=== PATIENT | male | born 1935 | race Caucasian/White ===

== ENCOUNTER 2016-07-22 16:28 | Inpatient (IN) | payer MEDICARE, BC ==
[2016-07-22] MEDS ORDERED: SODIUM CHLORIDE 0.9% 1,000 ML IV STA ×2 (17:14→19:03)
--- NOTE | 2016-07-22 17:53 | ED ---
General Adult HPI - General Chief complaint: Fall Stated complaint: Fall-Sent By Dr Diaz Seen by Provider: 07/22/16 17:14 Source: patient, family, RN notes reviewed, old records reviewed Mode of arrival: wheelchair Limitations: no limitations - History of Present Illness Initial comments: This is an 81-year-old male to the ER for evaluation. This patient presents for evaluation of weakness, increased falls. Patient has no specific medical history aside from high blood pressure and chronic lung disease. Patient takes no medications at home. Family states patient's been having increasing falls lately, patient subsequently complaints, and assurance of breath denies chest pain is about October.Patient's level of activity and weakness has been increased, his also been more tired than normal. Patient denies any nausea vomiting, no diarrhea, no fevers, no blood in his stool - Related Data Home Medications Medication Instructions Recorded Confirmed Chlorthalidone [Hygroten] 50 mg PO QAM 07/22/16 07/22/16 Rosuvastatin Calcium [Crestor] 10 mg PO QAM 07/22/16 07/22/16 Allergies Allergy/AdvReac Type Severity Reaction Status Date / Time No Known Allergies Allergy Verified 07/22/16 17:46 Review of Systems ROS Statement: Those systems with pertinent positive or pertinent negative responses have been documented in the HPI. ROS Other: All systems not noted in ROS Statement are negative. Past Medical History Past Medical History: Hypertension Additional Past Medical History / Comment(s): kidney stones History of Any Multi-Drug Resistant Organisms: None Reported Past Surgical History: Prostate Surgery Past Psychological History: No Psychological Hx Reported Smoking Status: Former smoker Past Alcohol Use History: Rare Past Drug Use History: None Reported General Exam Limitations: no limitations General appearance: alert, anxious, cachectic Head exam: Present: atraumatic, normocephalic, normal inspection Eye exam: Present: normal appearance, PERRL, EOMI. Absent: scleral icterus, conjunctival injection, periorbital swelling ENT exam: Present: mucous membranes dry Neck exam: Present: normal inspection. Absent: tenderness, meningismus, lymphadenopathy Respiratory exam: Present: normal lung sounds bilaterally, wheezes, decreased breath sounds, prolonged expiratory. Absent: respiratory distress, rales, rhonchi, stridor Cardiovascular Exam: Present: normal rhythm, tachycardia, normal heart sounds. Absent: systolic murmur, diastolic murmur, rubs, gallop, clicks GI/Abdominal exam: Present: soft, normal bowel sounds. Absent: distended, tenderness, guarding, rebound, rigid Extremities exam: Present: normal inspection, full ROM, normal capillary refill. Absent: tenderness, pedal edema, joint swelling, calf tenderness Back exam: Present: normal inspection Neurological exam: Present: alert, oriented X3, CN II-XII intact Psychiatric exam: Present: normal affect, normal mood Skin exam: Present: warm, dry, intact, normal color. 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 Patient will be admitted for appropriate treatment of all of the above, cardiopulmonary resuscitation and management. - Lab Data Result diagrams: 07/22/16 17:45 07/22/16 17:45 Lab Results 07/22/16 07/22/16 07/22/16 Range/Units 17:45 17:45 17:45 WBC 14.6 H (3.8-10.6) k/uL RBC 4.03 L (4.30-5.90) m/uL Hgb 12.6 L (13.0-17.5) gm/dL Hct 37.5 L (39.0-53.0) % MCV 93.0 (80.0-100.0) fL MCH 31.3 (25.0-35.0) pg MCHC 33.7 (31.0-37.0) g/dL RDW 14.0 (11.5-15.5) % Plt Count 266 (150-450) k/uL Neutrophils % 93 % Lymphocytes % 2 % Monocytes % 3 % Eosinophils % 0 % Basophils % 1 % Neutrophils # 13.6 H (1.3-7.7) k/uL Lymphocytes # 0.3 L (1.0-4.8) k/uL Monocytes # 0.5 (0-1.0) k/uL Eosinophils # 0.0 (0-0.7) k/uL Basophils # 0.1 (0-0.2) k/uL PT (9.0-12.0) sec INR (<1.1) APTT (22.0-30.0) sec Sodium 135 L (137-145) mmol/L Potassium 3.7 (3.5-5.1) mmol/L Chloride 88 L (98-107) mmol/L Carbon Dioxide 29 (22-30) mmol/L Anion Gap 18 mmol/L BUN 73 H (9-20) mg/dL Creatinine 2.30 H (0.66-1.25) mg/dL Est GFR (MDRD) Af Amer 33 (>60 ml/min/1.73 sqM) Est GFR (MDRD) Non-Af 27 (>60 ml/min/1.73 sqM) Glucose 141 H (74-99) mg/dL Calcium 9.1 (8.4-10.2) mg/dL Phosphorus 5.1 H (2.5-4.5) mg/dL Magnesium 2.5 H (1.6-2.3) mg/dL Total Bilirubin 1.1 (0.2-1.3) mg/dL AST 47 (17-59) U/L ALT 43 (21-72) U/L Alkaline Phosphatase 86 (38-126) U/L Total Creatine Kinase 252 H (55-170) U/L CK-MB (CK-2) 6.3 H* (0.0-2.4) ng/mL CK-MB (CK-2) Rel Index 2.5 Troponin I 0.507 H* (0.000-0.034) ng/mL Total Protein 7.0 (6.3-8.2) g/dL Albumin 3.8 (3.5-5.0) g/dL 07/22/16 Range/Units 17:45 WBC (3.8-10.6) k/uL RBC (4.30-5.90) m/uL Hgb (13.0-17.5) gm/dL Hct (39.0-53.0) % MCV (80.0-100.0) fL MCH (25.0-35.0) pg MCHC (31.0-37.0) g/dL RDW (11.5-15.5) % Plt Count (150-450) k/uL Neutrophils % % Lymphocytes % % Monocytes % % Eosinophils % % Basophils % % Neutrophils # (1.3-7.7) k/uL Lymphocytes # (1.0-4.8) k/uL Monocytes # (0-1.0) k/uL Eosinophils # (0-0.7) k/uL Basophils # (0-0.2) k/uL PT 11.3 (9.0-12.0) sec INR 1.1 (<1.1) APTT 23.2 (22.0-30.0) sec Sodium (137-145) mmol/L Potassium (3.5-5.1) mmol/L Chloride (98-107) mmol/L Carbon Dioxide (22-30) mmol/L Anion Gap mmol/L BUN (9-20) mg/dL Creatinine (0.66-1.25) mg/dL Est GFR (MDRD) Af Amer (>60 ml/min/1.73 sqM) Est GFR (MDRD) Non-Af (>60 ml/min/1.73 sqM) Glucose (74-99) mg/dL Calcium (8.4-10.2) mg/dL Phosphorus (2.5-4.5) mg/dL Magnesium (1.6-2.3) mg/dL Total Bilirubin (0.2-1.3) mg/dL AST (17-59) U/L ALT (21-72) U/L Alkaline Phosphatase (38-126) U/L Total Creatine Kinase (55-170) U/L CK-MB (CK-2) (0.0-2.4) ng/mL CK-MB (CK-2) Rel Index Troponin I (0.000-0.034) ng/mL Total Protein (6.3-8.2) g/dL Albumin (3.5-5.0) g/dL - Radiology Data Radiology results: report reviewed (CT brain negative for acute disease, chest x -ray positive for pneumonia), image reviewed Critical Care Time Critical Care Time: Yes Total Critical Care Time: 31 Disposition Clinical Impression: Syncope, Fall, Community acquired bacterial pneumonia, NSTEMI (non-ST elevated myocardial infarction), ARF (acute renal failure), Anemia, Weakness Disposition: ADMITTED IP TO THIS HOSP Condition: Serious Referrals: Gustavo Szymanski MD [Primary Care Provider] - 1-2 days
[2016-07-22 17:59] LABS: Basophils # (A) 0.1 k/uL (0-0.2); Basophils % (A) 1 %; CH 32.5; CHCM 35.2; Eosinophils % (A) 0 %; HCT 37.5 % (39.0-53.0); HDW 2.83; HGB 12.6 gm/dL (13.0-17.5); Luc # (Auto) 0.05; Luc % (Auto) 0; Lymphocytes # (A) 0.3 k/uL (1.0-4.8); Lymphocytes % (A) 2 %; MCH 31.3 pg (25.0-35.0); MCHC 33.7 g/dL (31.0-37.0); Mean Platelet Volume 8.3; Monocytes # (A) 0.5 k/uL (0-1.0); Monocytes % (A) 3 %; Neutrophils # (A) 13.6 k/uL (1.3-7.7); Neutrophils % (A) 93 %; RBC 4.03 m/uL (4.30-5.90); WBC 14.6 k/uL (3.8-10.6); WBC (Perox) 15.35
[2016-07-22 18:16] LABS: INR 1.1 (<1.1); Partial Thromboplastin Time 23.2 sec (22.0-30.0); Prothrombin Time 11.3 sec (9.0-12.0)
[2016-07-22 18:23] LABS: Calcium 9.1 mg/dL (8.4-10.2); Magnesium 2.5 mg/dL (1.6-2.3); Phosphorous 5.1 mg/dL (2.5-4.5); Potassium 3.7 mmol/L (3.5-5.1); Total Bilirubin 1.1 mg/dL (0.2-1.3)
[2016-07-22 18:40] LABS: Creatine Kinase MB 6.3 ng/mL (0.0-2.4); Troponin I 0.507 ng/mL (0.000-0.034)
--- NOTE | 2016-07-22 18:55 | CT ---
EXAMINATION TYPE: CT brain wo con DATE OF EXAM: 07/22/2016 6:43 PM COMPARISON: NONE HISTORY: Weakness CT DLP: 1019. mGycm Automated exposure control for dose reduction was used. FINDINGS: There is cerebral cortical atrophy. There is no mass effect or midline shift. There is no sign of int racranial hemorrhage. The calvarium is intact. IMPRESSION: Cerebral atrophy. No acute intracranial abnormality.
--- NOTE | 2016-07-22 18:59 | XR ---
EXAMINATION TYPE: XR chest 2V DATE OF EXAM: 07/22/2016 6:52 PM COMPARISON: NONE HISTORY: Weakness and fell today TECHNIQUE: Frontal and lateral views of the chest are obtained. FINDINGS: There is coarsening of interstitial markings. There is a mild infiltrate at the left lung base. The other lung baum are clear. There are old right-sided healed rib fractures. There are no h ilar masses. Thoracic aorta is atheromatous. There are chest leads. There is osteopenia with 90% ante rior wedging of a midthoracic vertebra. There is also 50% anterior wedging of T12 or L1. IMPRESSION: Mild left lower lobe pneumonia. No heart failure. Atheromatous aorta. Thoracic compressi on fractures of uncertain age. No heart failure.
[2016-07-22] MEDS ORDERED: SODIUM CHLORIDE 0.9% 500 ML IV STA (19:03)
[2016-07-22] MEDS ORDERED: LEVOFLOXACIN 750MG-D5W PMX 750 MG in DEXTROSE/WATER 1 150ML.BAG IVPB STA (19:19)
[2016-07-22] MEDS ORDERED: ASPIRIN 81 MG CHEW PO STA (19:19)
[2016-07-22] MEDS ORDERED: NITROGLYCERIN SL TABS 0.4 MG TAB SUBLINGUAL PRN (19:19)
[2016-07-22] MEDS ORDERED: HEPARIN SODIUM,PORCINE 5,000 UNIT/ML 1 ML VIAL IV PRN (19:19)
[2016-07-22] MEDS ORDERED: HEPARIN SODIUM,PORCINE 5,000 UNIT/ML 1 ML VIAL IV ONE (19:19)
[2016-07-22] MEDS ORDERED: IPRATROPIUM-ALBUTEROL 3 ML NEB INHALATION STA (19:19)
[2016-07-22] MEDS ORDERED: HEPARIN SODIUM,PORCINE/D5W PMX 25,000 UNIT in DEXTROSE/WATER 1 500ML.BAG IV SCH (19:30)
[2016-07-23] MEDS: SODIUM CHLORIDE 0.9% 1,000 ML IV SCH ×4 (01:15→23:05)
[2016-07-23 02:04] LABS: Troponin I 0.355 ng/mL (0.000-0.034)
[2016-07-23 05:51] LABS: Mean Platelet Volume 8.6
[2016-07-23 06:13] LABS: Cholesterol 105 mg/dL (<200); HDL Cholesterol 54 mg/dL (40-60); Triglycerides 70 mg/dL (<150)
[2016-07-23 06:28] LABS: Creatine Kinase MB 4.5 ng/mL (0.0-2.4); Troponin I 0.267 ng/mL (0.000-0.034)
--- NOTE | 2016-07-23 07:54 | P.HPIM ---
History of Present Illness H&P Date: 07/23/16 Chief Complaint: Multiple falls This is a history of physical on an 81-year-old white male with history of hypertension and hyperlipidemia. I [place] him for the first time yesterday after his daughter visited him and stated that during the time of visit, he had a fall that was heard but not necessary witnessed. The patient was disoriented for about 5 minutes and had difficulty with weakness and ambulation. Family states the last several weeks she's fallen multiple times. And he even has run into the side of the door bruising his face. Because of the multiplicity of his falls, he was evaluated in the emergency room after significant coaxing to go to the ER. I was worried about concussion at that time. However, he has had elevated cardiac enzymes and pneumonia has been diagnosed. He is a former smoker of at least [id number] but has not smoked for over 10 years. He is admitted for appropriate pneumonia. Review of Systems Constitutional: Reports weakness, Denies fever Ears, nose, mouth and throat: Denies sore throat Cardiovascular: Denies chest pain, Denies edema, Denies paroxysmal nocturnal dyspnea Respiratory: Denies cough Gastrointestinal: Denies abdominal pain, Denies diarrhea, Denies nausea, Denies vomiting Musculoskeletal: Denies myalgias Integumentary: Denies pruritus, Denies rash Neurological: Reports balance difficulties, Reports head injury, Reports weakness, Denies numbness Psychiatric: Denies anxiety, Denies depression Endocrine: Denies fatigue, Denies weight change Past Medical History Past Medical History: Hypertension Additional Past Medical History / Comment(s): kidney stones History of Any Multi-Drug Resistant Organisms: None Reported Past Surgical History: Prostate Surgery Past Anesthesia/Blood Transfusion Reactions: No Reported Reaction Past Psychological History: No Psychological Hx Reported Smoking Status: Former smoker Past Alcohol Use History: Rare Past Drug Use History: None Reported - Past Family History Father Family Medical History: No Reported History Medications and Allergies Home Medications Medication Instructions Recorded Confirmed Type Chlorthalidone [Hygroten] 50 mg PO QAM 07/22/16 07/22/16 History Rosuvastatin Calcium [Crestor] 10 mg PO QAM 07/22/16 07/22/16 History Allergies Allergy/AdvReac Type Severity Reaction Status Date / Time No Known Allergies Allergy Verified 07/22/16 17:46 Physical Exam Vitals: Vital Signs Temp Pulse Pulse Resp BP BP Pulse Ox 07/23/16 04:00 97.3 F L 63 18 123/79 97 07/22/16 23:53 97.6 F 67 16 122/67 100 07/22/16 23:00 90 18 101/64 97 07/22/16 22:00 98 20 91/59 94 L 07/22/16 21:00 98.1 F 93 18 112/61 97 07/22/16 20:03 97.8 F 100 20 155/84 94 L 07/22/16 19:44 90 07/22/16 19:36 92 Intake and Output 07/22/16 07/23/16 07/23/16 22:59 06:59 14:59 Intake Total 694.808 Balance 694.808 Intake: IV 589 Heparin Sodium,Porcine/ 89 D5w Pmx 25,000 unit In Dextrose/Water 1 500ml. bag @ 12 UNITS/KG/HR 16. 32 mls/hr IV .Q24H [facility] Rx #:[id number] Sodium Chloride 0.9% 1, 500 000 ml @ 100 mls/hr IV . Q10H [facility] Rx#:[id number] Intake, IV Titration 105.808 Amount Heparin Sodium,Porcine/ 105.808 D5w Pmx 25,000 unit In Dextrose/Water 1 500ml. bag @ 12 UNITS/KG/HR 16. 32 mls/hr IV .Q24H [facility] Rx #:[id number] Other: Voiding Method Urinal # Voids 2 Weight 49.8 kg - Constitutional General appearance: no acute distress, thin - EENT Eyes: EOMI - Neck Neck: no lymphadenopathy - Respiratory Respiratory: bilateral: diminished - Cardiovascular Rhythm: regular Heart sounds: normal: S1, S2 - Gastrointestinal General gastrointestinal: soft, no tenderness - Integumentary Integumentary: no rash - Neurologic Neurologic: CNII-XII intact - Musculoskeletal Musculoskeletal: generalized weakness Results CBC & Chem 7: 07/23/16 05:38 07/22/16 17:45 Labs: Abnormal Lab Results - Last 24 Hours (Table) 07/23/16 07/23/16 07/23/16 Range/Units 01:05 01:05 05:38 APTT 45.8 H (22.0-30.0) sec Total Creatine Kinase 223 H 245 H (55-170) U/L CK-MB (CK-2) 5.0 H* 4.5 H* (0.0-2.4) ng/mL Troponin I 0.355 H* 0.267 H* (0.000-0.034) ng/mL Thrombosis Risk Factor Assmnt - Choose All That Apply Any of the Below Risk Factors Present?: No Each Risk Factor Represents 3 Points: Age 75 years or older Thrombosis Risk Factor Assessment Total Risk Factor Score: 3 Thrombosis Risk Factor Assessment Level: Moderate Risk Assessment and Plan (1) Community acquired bacterial pneumonia Status: Acute (2) Fall Status: Acute (3) Weakness Status: Acute Plan: Rule out myocardial infarction. Treat for daily acquired pneumonia. Start physical therapy once the patient's strength starts turning. Check CBC and see me in a.m. I discussed CODE STATUS with the patient, he wishes to be a full code at this time. Prognosis is guarded secondary to his multiple comorbidities and possible cardiac status change. Time with Patient: Less than 30
[2016-07-23] MEDS: IPRATROPIUM-ALBUTEROL 3 ML NEB INHALATION PRN (07:55)
--- NOTE | 2016-07-23 10:42 | ECHOF ---
Referral Reason:elevTrop MEASUREMENTS -------- HEIGHT: 180.3 cm WEIGHT: 49.4 kg BP: 123/79 RVIDd: 4.3 cm (< 3.3) IVSd: 1.3 cm (0.6 - 1.1) LVIDd: 3.6 cm (3.9 - 5.3) LVPWd: 1.3 cm (0.6 - 1.1) IVSs: 1.6 cm LVIDs: 2.6 cm LVPWs: 2.2 cm LA Diam: 3.1 cm (2.7 - 3.8) LAESV Index (A-L): 19.54 ml/m Ao Diam: 4.5 cm (2.0 - 3.7) AV Cusp: 0.9 cm (1.5 - 2.6) MV EXCURSION: 16.052 mm (> 18.000) MV EF SLOPE: 28 mm/s (70 - 150) EPSS: 0.2 cm MV E Henry: 0.54 m/s MV DecT: 276 ms MV A Henry: 1.17 m/s MV E/A Ratio: 0.46 AV maxP.27 mmHg AV meanP.20 mmHg RAP: 5.00 mmHg RVSP: 42.29 mmHg FINDINGS -------- Sinus rhythm. This was a technically adequate study. There is mild concentric left ventricular hypertrophy. Overall left ventricular systolic function is normal with, an EF between 55 - 60 %. The right ventricle is severely enlarged. Normal LA size by volume 22+/-6 ml/m2. The right atrium is mildly enlarged. Aortic valve is trileaflet and is moderately thickened. There is mild aortic stenosis present. Peak/mean gradient across the Aortic Valve is 32.27mmHg / 16.20mmHg. The mitral valve leaflets are moderately thickened. Moderate mitral annular calcification present. Mild mitral regurgitation is present. Mild tricuspid regurgitation present. There is mild pulmonary hypertension. The right ventricular systolic pressure, as measured by Doppler, is 42.29mmHg. Trace/mild (physiologic) pulmonic regurgitation. The aortic root is dilated measuring 4.5cm. The inferior vena cava is mildly dilated. There is no pericardial effusion. CONCLUSIONS -------- 1. Sinus rhythm. 2. The mitral valve leaflets are moderately thickened. 3. Moderate mitral annular calcification present. 4. Mild mitral regurgitation is present. 5. Mild tricuspid regurgitation present. 6. There is mild pulmonary hypertension. 7. The right ventricular systolic pressure, as measured by Doppler, is 42.29mmHg. 8. Trace/mild (physiologic) pulmonic regurgitation. 9. The aortic root is dilated measuring 4.5cm. 10. The inferior vena cava is mildly dilated. 11. There is no pericardial effusion. 12. This was a technically adequate study. 13. There is mild concentric left ventricular hypertrophy. 14. The right ventricle is severely enlarged. 15. Normal LA size by volume 22+/-6 ml/m2. 16. The right atrium is mildly enlarged. 17. Aortic valve is trileaflet and is moderately thickened. 18. There is mild aortic stenosis present. 19. Peak/mean gradient across the Aortic Valve is 32.27mmHg / 16.20mmHg. SURVEY SUPERINTENDENT: Sai Patino RDCS
--- NOTE | 2016-07-23 11:01 | CONS ---
DATE OF CONSULTATION: Mundo is an 81-year-old gentleman with history of dyslipidemia, and hypertension who presented to the hospital having had an episode of syncope at home. Patient's daughter who gave me most of the information states that the patient has been becoming more fatigued and tired over the last 1 to 2 weeks. She has been checking on him more frequently and when she went to see him, she found that he was on the floor. He bumped into a door and had some ecchymosis on the face. Denies chest pain, difficulty in breathing, focal neurological deficits or seizure disorder. There is no prior history of myocardial infarction and angioplasty or valvular surgery. At the time of my evaluation, he appears comfortable at rest and is free of symptoms. He has had 3 sets of troponins that are on ( ) in the randall zone at the 0.5 0.3 and 0.2, he has renal insufficiency with a BUN of 73 and creatinine 4.3, which is probably the reason why the tropes are elevated. LDL cholesterol is 57. Since being admitted to hospital. he is doing well and denies any symptoms. His EKG shows that he is in sinus rhythm with poor R wave progression and right bundle branch block and left anterior fascicular block. He did not have any episodes of high-grade AV block. Since admission he has been diagnosed with pneumonia and is currently being treated for the same. He also has dehydration. Past medical history is significant for hypertension. Medications include: 1. Crestor. 2. Chlorthalidone. ALLERGIES: No known drug allergies. FAMILY HISTORY: Negative for premature coronary artery disease. SOCIAL HISTORY: Negative for smoking, ETOH abuse, or drug abuse. REVIEW OF SYSTEMS: HEENT is significant for fall and ecchymosis. CARDIAC: Negative. RESPIRATORY: Negative. GI: Negative. GENITOURINARY: Significant for renal insufficiency. PSYCHOSOCIAL: Negative. ENDOCRINE: Negative. DERM: Negative. CONSTITUTIONAL: Significant for fatigue and tiredness. Oncological: Negative. HEMATOLOGICAL: Negative. The rest of the system review is not relevant. On exam, patient is afebrile, heart rate is 84 beats per minute, blood pressure 119/60, respirations 18, O2 sat is 97% on 4 liters. There is no jugular venous distention. Carotid upstroke is normal. There is no bruit. Chest exam reveals good air entry bilaterally. Heart exam reveals first and second heart sounds and a systolic murmur at the left lower sternal border. ABDOMEN: Soft. Exam of the extremities did not reveal any edema. Peripheral pulses are felt. AIR CREW SUPERVISOR exam did not reveal focal neurological deficits. Labs show a hemoglobin of 12.6, platelet count of 266. Potassium is 3.7, BUN 73. Creatinine is 2.3. Troponin is 0.5, 0.3 and 0.2. ASSESSMENT: 1. Syncope, probably secondary to dehydration, probably secondary to the diuretics. 2. Troponin elevation may be related to the underlying renal failure. 3. Possible pneumonia. PLAN: I am going to obtain a 2-D echo on him to document his LV function. I am going to stop the IV heparin. Patient did not have a myocardial infarction. The troponin elevation is in a pattern inconsistent with a diagnosis of myocardial infarction. I agree with the hydration. I anticipate him getting better. Echocardiogram should give his LV function. Will obtain a carotid duplex study to rule out carotid stenosis. Once he gets better and then discharged home I will consider an outpatient stress test on him. Thank you for giving me the privilege to participate in the care of this gentleman.
[2016-07-23] MEDS: ACETAMINOPHEN TAB 325 MG TAB PO PRN (11:44)
--- NOTE | 2016-07-23 13:20 | US ---
EXAMINATION TYPE: US carotid duplex BILAT DATE OF EXAM: 07/23/2016 1:05 PM COMPARISON: NONE CLINICAL HISTORY: syncope. Weakness EXAM MEASUREMENTS: RIGHT: Peak Systolic Velocity (PSV) cm/sec ----- Right CCA: 53.7 ----- Right ICA: 91.9 ----- Right ECA: 72.3 ICA/CCA ratio: 1.7 RIGHT: End Diastole cm/sec ----- Right CCA: 15.3 ----- Right ICA: 28.9 ----- Right ECA: 12.8 LEFT: Peak Systolic Velocity (PSV) cm/sec ----- Left CCA: 64.7 ----- Left ICA: 82.3 ----- Left ECA: 97.7 ICA/CCA ratio: 1.3 LEFT: End Diastole cm/sec ----- Left CCA: 12.0 ----- Left ICA: 29.6 ----- Left ECA: 15.7 VERTEBRALS (direction of flow): Right Vertebral: Antegrade Left Vertebral: Antegrade TECHNOLOGIST IMPRESSION: Moderate to severe plaque noted bilateral bifurcations. No evidence of incr eased velocities at this time. Right IJV appears prominent Grayscale images show prominent right internal jugular vein which may be normal finding. Satisfactory color flow is seen. There is intramural hyperplasia with moderate to severe eccentric plaque right c arotid bulb extending into proximal internal carotid artery. Similar moderate to severe concentric hy perechoic plaque is seen in left carotid bulb. Velocity measurements and ratios and visualized portio n of both internal carotid arteries is within normal limits. IMPRESSION: Moderate to severe atherosclerotic change bilaterally without hemodynamically significan t stenosis clearly seen in either internal carotid artery .
[2016-07-23] MEDS: HEPARIN SODIUM,PORCINE 5,000 UNIT/ML 1 ML VIAL SQ SCH ×2 (15:52→23:05)
[2016-07-23] MEDS: ATORVASTATIN 80 MG TAB PO SCH (15:52)
[2016-07-23] MEDS: ASPIRIN 325 MG TAB PO SCH (15:52)
[2016-07-23] MEDS ORDERED: LEVOFLOXACIN 750MG-D5W PMX 750 MG in DEXTROSE/WATER 1 150ML.BAG IVPB SCH (20:00)
[2016-07-23 23:13] LABS: Appearance,Urine Clear (Clear); Bilirubin,Urine Negative (Negative); Glucose,Urine (UA) Negative (Negative); Ketones,Urine Negative (Negative); Leukocyte Esterase,Urine Negative (Negative); Nitrite,Urine Negative (Negative); PH, Urine 5.5 (5.0-8.0); Protein,Urine Trace (Negative); Specific Gravity,Urine 1.012 (1.001-1.035); UA Billing (MACRO vs. MICRO) CHEM; Urobilinogen,Urine <2.0 mg/dL (<2.0)
[2016-07-24 06:17] LABS: Mean Platelet Volume 7.4
--- NOTE | 2016-07-24 07:59 | P.PN ---
Subjective Principal diagnosis: Pneumonia The patient is an 81-year-old white male essentially admitted for fatigue multiple falls and pneumonia. We will start some physical therapy. No significant fever or chills stated but he seems weak and somewhat Today area no voiding difficulties. Some difficulty sleeping stated secondary to the roommate excessively snoring Objective - Vital Signs Vital signs: Vital Signs Temp 97.5 F L 07/24/16 04:00 Pulse 86 07/24/16 04:00 Resp 16 07/24/16 04:00 BP 108/58 07/24/16 04:00 Pulse Ox 91 L 07/24/16 04:00 Intake & Output 07/23/16 07/24/16 07/24/16 18:59 06:59 18:59 Intake Total 472 1350 Output Total 1250 675 Balance -778 675 Weight 49.8 kg 52 kg Intake: IV 1000 Sodium Chloride 0.9% 1, 1000 000 ml @ 100 mls/hr IV . Q10H [facility] Rx#:[id number] Oral 472 350 Output: Urine 1250 675 Other: Voiding Method Toilet Urinal # Voids 1 1 # Bowel Movements 0 - Constitutional General appearance: Present: thin - EENT Eyes: Absent: abnormal pupil - Respiratory Respiratory: bilateral: diminished - Cardiovascular Rhythm: regular - Gastrointestinal General gastrointestinal: Present: soft. Absent: tenderness - Labs CBC & Chem 7: 07/24/16 06:04 07/22/16 17:45 Labs: Abnormal Lab Results - Last 24 Hours (Table) 07/22/16 07/23/16 Range/Units 22:43 07:55 APTT 55.2 H (22.0-30.0) sec Urine Protein Trace H (Negative) Assessment and Plan (1) Community acquired bacterial pneumonia Status: Acute (2) Fall Status: Acute (3) Weakness Status: Acute Plan: Rule out myocardial infarction. Treat for daily acquired pneumonia. Start physical therapy once the patient's strength starts turning. Check CBC and see me in a.m. I discussed CODE STATUS with the patient, he wishes to be a full code at this time. Prognosis is guarded secondary to his multiple comorbidities and possible cardiac status change. Time with Patient: Less than 30
[2016-07-24] MEDS: ATORVASTATIN 80 MG TAB PO SCH (08:37)
[2016-07-24] MEDS: HEPARIN SODIUM,PORCINE 5,000 UNIT/ML 1 ML VIAL SQ SCH ×3 (08:38→22:45)
[2016-07-24] MEDS: ASPIRIN 325 MG TAB PO SCH (08:38)
[2016-07-24 10:18] LABS: INR 1.1 (<1.1); Prothrombin Time 11.3 sec (9.0-12.0)
[2016-07-24 10:49] LABS: Basophils % (A) 0 %; CH 31.9; Eosinophils % (A) 0 %; HCT 30.9 % (39.0-53.0); HDW 2.93; HGB 10.1 gm/dL (13.0-17.5); Luc # (Auto) 0.06; Luc % (Auto) 1; Lymphocytes # (A) 0.5 k/uL (1.0-4.8); Lymphocytes % (A) 6 %; MCH 30.9 pg (25.0-35.0); MCHC 32.8 g/dL (31.0-37.0); MCV 94.4 fL (80.0-100.0); Mean Platelet Volume 7.4; Monocytes # (A) 0.4 k/uL (0-1.0); Monocytes % (A) 4 %; Neutrophils # (A) 7.1 k/uL (1.3-7.7); Neutrophils % (A) 88 %; RBC 3.27 m/uL (4.30-5.90); RDW 14.3 % (11.5-15.5); WBC (Perox) 8.02
[2016-07-24] MEDS: methylPREDNISolone SOD SUCCI 40 MG/ML 1 ML VIAL IV SCH ×3 (12:18→22:45)
[2016-07-24] MEDS: SODIUM CHLORIDE 0.9% 1,000 ML IV SCH (12:43)
--- NOTE | 2016-07-24 14:04 | PN ---
Mundo Espinoza is an 81-year-old gentleman who presented to hospital with syncope and subsequently had been diagnosed with pneumonia and renal insufficiency and mild troponin elevation. This morning, he is feeling better. On exam, he is comfortable at rest. Vital signs are stable. There is no jugular venous distention. Chest exam reveals good air entry bilaterally. Heart exam reveals first and second heart sounds. No gallop. Exam of extremities did not reveal edema. Peripheral pulses are felt. Labs show a creatinine of 0.5, 0.3 and 0.2. Hemoglobin is 10.1. I do not have any labs from here and carotid does not reveal significant stenosis. Echocardiogram shows that aortic root is dilated at 4.5 but the LV function is normal. ASSESSMENT: 1. Syncope. 2. Pneumonia. 3. Ascending aortic aneurysm. PLAN: The patient is on aspirin, Lipitor, which he is going to continue. He has ascending aortic aneurysm but renal functions are poor. At the moment he is not a candidate for any aortic root surgery anyway. When he is more stable, we will investigate it further.
[2016-07-24] MEDS ORDERED: LEVOFLOXACIN 500MG-D5W PMX 500 MG in DEXTROSE/WATER 1 100ML.BAG IVPB SCH (20:00)
[2016-07-24] MEDS ORDERED: ZOLPIDEM 5 MG TAB PO PRN (21:00)
[2016-07-25 06:26] LABS: CH 31.8; CHCM 33.7; HCT 27.7 % (39.0-53.0); HDW 2.99; HGB 8.9 gm/dL (13.0-17.5); MCH 30.6 pg (25.0-35.0); MCHC 32.3 g/dL (31.0-37.0); MCV 94.9 fL (80.0-100.0); Mean Platelet Volume 7.9; RBC 2.92 m/uL (4.30-5.90); RDW 14.2 % (11.5-15.5)
[2016-07-25 07:09] LABS: Glucose,Whole Blood 135 mg/dL (75-99)
[2016-07-25] MEDS: SODIUM CHLORIDE 0.9% 1,000 ML IV SCH ×2 (07:49→17:54)
[2016-07-25 07:55] LABS: Hemoglobin A1C 5.5 % (4.2-6.1)
--- NOTE | 2016-07-25 07:57 | P.PN ---
Subjective Principal diagnosis: The patient has been admitted for syncope and pneumonia. This is a continue progress note an 81-year-old white male essentially admitted for syncope with pneumonia. Significant wheezing is now is noted. I placed him on solid Medrol 40 mg every 8 hours yesterday. He states he feels not much of a difference. Question element of dementia. I am concerned because he does live alone and has fallen multiple times last several weeks. However, when discussed to possibly go to ECF, he becomes resistant to this idea. No voiding difficulties otherwise stated. We will go ahead PIVL his IV. Objective - Vital Signs Vital signs: Vital Signs Temp 97.7 F 07/25/16 04:00 Pulse 97 07/25/16 04:00 Resp 20 07/25/16 04:00 BP 156/98 07/25/16 04:00 Pulse Ox 98 07/25/16 04:00 Intake & Output 07/24/16 07/25/16 07/25/16 18:59 06:59 18:59 Intake Total 350 Output Total 800 1900 Balance -450 -1900 Weight 56.5 kg Intake: Oral 350 Output: Urine 800 1900 Other: Voiding Method Toilet Toilet Urinal Urinal # Voids 0 1 # Bowel Movements 0 0 - Constitutional General appearance: Present: thin - EENT Eyes: Absent: abnormal pupil - Respiratory Respiratory: bilateral: wheezing - Cardiovascular Rhythm: regular Heart sounds: normal: S1, S2 - Gastrointestinal General gastrointestinal: Present: soft. Absent: tenderness - Musculoskeletal Musculoskeletal: Present: generalized weakness - Labs CBC & Chem 7: 07/25/16 05:56 07/22/16 17:45 Labs: Abnormal Lab Results - Last 24 Hours (Table) 07/24/16 07/25/16 07/25/16 Range/Units 09:20 05:56 06:51 RBC 3.27 L 2.92 L (4.30-5.90) m/uL Hgb 10.1 L 8.9 L (13.0-17.5) gm/dL Hct 30.9 L 27.7 L (39.0-53.0) % Lymphocytes # 0.5 L (1.0-4.8) k/uL POC Glucose (mg/dL) 135 H (75-99) mg/dL Microbiology - Last 24 Hours (Table) 02/06/17 22:43 Urine Culture - Preliminary Urine,Voided Assessment and Plan (1) Community acquired bacterial pneumonia Status: Acute (2) Fall Status: Acute (3) Weakness Status: Acute Plan: Appreciate cardiology input. We'll ask pulmonology to evaluate the patient secondary to his minimal improvement over the last several days after treatment. Check chest x-ray today. Otherwise, discharge planning for possible ECF versus home health. Anticipate discharge in next 24-48 hours if stabilizing. However, I am concerned about his home situation given the fact that he is alone and his daughter, is about an hour drive away. Time with Patient: Less than 30
[2016-07-25] MEDS: INSULIN LISPRO (humaLOG) 300 UNIT/3 ML VIAL SQ SCH ×4 (08:16→22:06)
[2016-07-25] MEDS: ASPIRIN 325 MG TAB PO SCH (08:19)
[2016-07-25] MEDS: ATORVASTATIN 80 MG TAB PO SCH (08:20)
[2016-07-25] MEDS: methylPREDNISolone SOD SUCCI 40 MG/ML 1 ML VIAL IV SCH ×3 (08:20→17:44)
[2016-07-25] MEDS: HEPARIN SODIUM,PORCINE 5,000 UNIT/ML 1 ML VIAL SQ SCH ×2 (08:20→16:22)
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
[2016-07-25 12:02] LABS: Glucose,Whole Blood 172 mg/dL (75-99)
--- NOTE | 2016-07-25 13:10 | XR ---
EXAMINATION TYPE: XR chest 2V DATE OF EXAM: 07/25/2016 1:03 PM COMPARISON: Chest x-ray from 3 days ago. HISTORY: Respiratory distress TECHNIQUE: Frontal and lateral views of the chest are obtained. FINDINGS: There is chronic emphysematous change redemonstrated. New small bilateral pleural effusion s are seen. No suspicious new focal airspace opacity or pneumothorax is present. Improved aeration le ft lung base is seen. The cardiac silhouette size is upper limits of normal with atherosclerotic thor acic aorta. The osseous structures are demineralized. Degenerative change in both shoulders is seen . There are moderate to severe compression type fracture deformities at several levels in thoracic sp ine redemonstrated presumed chronic. IMPRESSION: Chronic emphysematous change with new small bilateral pleural effusions. Improved aerati on left lower lobe, no new infiltrate is present.
--- NOTE | 2016-07-25 14:15 | P.PN ---
Subjective Principal diagnosis: Syncope This is an 81-year-old gentleman with history of hyperlipidemia, hypertension, who presented to the hospital following a syncopal episode. Troponin levels 0.5, 0.3, 0.2. Creatinine on admission 2.3. Hemoglobin on admission 12.6, 8.9 this morning. White blood cell count on admission 14.6. Blood pressure on admission 168/80. It is noted at times at the patient's blood pressure drops down to 90 systolic. We will check orthostatics. Echocardiogram with Doppler study was performed which revealed mildly enlarged right atrium with severely enlarged right ventricle. Mild pulmonary hypertension. Ejection fraction 55-60%. CT of the brain did not reveal any acute intracranial abnormality. At the time of my examination today, patient is sitting up in the chair, daughter is at his side. Denies any dizziness or lightheadedness. Breathing has been stable. Objective - Vital Signs Vital signs: Vital Signs Temp 97 F L 07/25/16 08:00 Pulse 95 07/25/16 08:00 Resp 19 07/25/16 08:00 BP 129/81 07/25/16 08:00 Pulse Ox 95 07/25/16 08:00 Intake & Output 07/24/16 07/25/16 07/25/16 18:59 06:59 18:59 Intake Total 350 337 Output Total 800 1900 0 Balance -450 -1900 337 Weight 56.5 kg Intake: Oral 350 337 Output: Urine 800 1900 0 Other: Voiding Method Toilet Toilet Urinal Urinal # Voids 0 1 # Bowel Movements 0 0 - Exam PHYSICAL EXAMINATION: HEENT: Head is atraumatic, normocephalic. Pupils equal, round. Neck is supple. There is no elevated jugular venous pressure. HEART EXAMINATION: S1 and S2 1 systolic murmur is heard. CHEST EXAMINATION: Lungs are clear to auscultation and precussion. No chest wall tenderness is noted on palpation or with deep breathing. ABDOMEN: Soft, nontender. Bowel sounds are heard. No organomegaly noted. EXTREMITIES: 2+ peripheral pulses with no evidence of peripheral edema and no calf tenderness noted. NEUROLOGIC patient is awake, alert and oriented -3. . - Labs CBC & Chem 7: 07/25/16 05:56 07/22/16 17:45 Labs: Abnormal Lab Results - Last 24 Hours (Table) 07/25/16 07/25/16 07/25/16 Range/Units 05:56 06:51 12:00 RBC 2.92 L (4.30-5.90) m/uL Hgb 8.9 L (13.0-17.5) gm/dL Hct 27.7 L (39.0-53.0) % POC Glucose (mg/dL) 135 H 172 H (75-99) mg/dL Microbiology - Last 24 Hours (Table) 07/22/16 22:43 Urine Culture - Preliminary Urine,Voided Assessment and Plan (1) Syncope Status: Acute (2) Elevated troponin Status: Acute (3) Anemia Status: Acute (4) ARF (acute renal failure) Status: Acute (5) Weakness Status: Acute Plan: From cardiology's perspective, we will check orthostatic heart rate and blood pressure every shift. We will also obtain a d-dimer, to rule out the possibility of a pulmonary embolism in the setting of syncope and abnormal troponins. Repeat lytes BUN and creatinine. Patient has also had a noted drop in hemoglobin since admission, 12.6 on admission, 8.9 this morning. We will request a stool for occult blood as well. Decrease aspirin to 81 mg daily. DNP note has been reviewed, I agree with a documented findings and plan of care. Patient was seen and examined.
[2016-07-25] MEDS: IPRATROPIUM-ALBUTEROL 3 ML NEB INHALATION SCH ×3 (16:24→20:37)
[2016-07-25 16:45] LABS: Glucose,Whole Blood 139 mg/dL (75-99)
[2016-07-25] MEDS: BUDESONIDE 0.5 MG/2 ML NEBU INHALATION SCH (20:37)
--- NOTE | 2016-07-25 21:36 | NM ---
EXAMINATION TYPE: NM pul vent and perfuse DATE OF EXAM: 07/25/2016 9:13 PM COMPARISON: Chest radiographs July 25, 2016 at 1:00 PM HISTORY: Respiratory distress with elevated d-dimer TECHNIQUE: Utilizing inhalation of 71.2 mCi Tc 99m DTPA aerosol and intravenous injection of 5.3 mCi of Tc 99m MAA, ventilation and perfusion images are acquired post injection in multiple projections. FINDINGS: There are innumerable and irregular bilateral moderate to large perfusion defects, most of which are matched with innumerable and irregular bilateral moderate and large ventilation defects. IMPRESSION: MARKEDLY ABNORMAL STUDY, CONSISTENT WITH INTERMEDIATE PROBABILITY FOR THE DIAGNOSIS OF PULMONARY EMBO LISM.
[2016-07-25 21:38] LABS: Glucose,Whole Blood 217 mg/dL (75-99)
[2016-07-25] MEDS ORDERED: HEPARIN SODIUM,PORCINE 5,000 UNIT/ML 1 ML VIAL IV PRN (21:57)
[2016-07-25] MEDS ORDERED: HEPARIN SODIUM,PORCINE 10,000 UNIT/ML 1 ML VIAL IV ONE (21:57)
[2016-07-25 22:28] LABS: Basophils % (A) 0 %; CH 31.9; CHCM 33.7; Eosinophils % (A) 0 %; HCT 27.6 % (39.0-53.0); HDW 3.04; Luc # (Auto) 0.04; Luc % (Auto) 1; Lymphocytes # (A) 0.3 k/uL (1.0-4.8); Lymphocytes % (A) 3 %; MCH 31.2 pg (25.0-35.0); MCHC 32.7 g/dL (31.0-37.0); MCV 95.4 fL (80.0-100.0); Mean Platelet Volume 7.7; Monocytes # (A) 0.3 k/uL (0-1.0); Monocytes % (A) 3 %; Neutrophils # (A) 7.3 k/uL (1.3-7.7); Neutrophils % (A) 93 %; RBC 2.89 m/uL (4.30-5.90); RDW 14.2 % (11.5-15.5); WBC 7.9 k/uL (3.8-10.6); WBC (Perox) 8.44
[2016-07-25 22:32] LABS: INR 1.1 (<1.1); Partial Thromboplastin Time 23.7 sec (22.0-30.0); Prothrombin Time 10.8 sec (9.0-12.0)
[2016-07-25] MEDS: HEPARIN SODIUM,PORCINE/D5W PMX 25,000 UNIT in DEXTROSE/WATER 1 500ML.BAG IV SCH (22:44)
[2016-07-26] MEDS: methylPREDNISolone SOD SUCCI 40 MG/ML 1 ML VIAL IV SCH ×5 (00:59→23:18)
[2016-07-26] MEDS: SODIUM CHLORIDE 0.9% 1,000 ML IV SCH ×2 (03:06→09:51)
[2016-07-26 06:00] LABS: Basophils % (A) 0 %; CH 31.8; CHCM 33.8; Eosinophils % (A) 0 %; HCT 26.3 % (39.0-53.0); HDW 3.12; HGB 8.5 gm/dL (13.0-17.5); Luc # (Auto) 0.05; Luc % (Auto) 1; Lymphocytes # (A) 0.3 k/uL (1.0-4.8); Lymphocytes % (A) 4 %; MCH 30.6 pg (25.0-35.0); MCHC 32.3 g/dL (31.0-37.0); MCV 94.8 fL (80.0-100.0); Mean Platelet Volume 7.6; Monocytes # (A) 0.3 k/uL (0-1.0); Monocytes % (A) 3 %; Neutrophils # (A) 8.6 k/uL (1.3-7.7); Neutrophils % (A) 93 %; RBC 2.77 m/uL (4.30-5.90); RDW 14.2 % (11.5-15.5); WBC 9.2 k/uL (3.8-10.6); WBC (Perox) 9.67
[2016-07-26 06:37] LABS: Glucose,Whole Blood 134 mg/dL (75-99)
[2016-07-26] MEDS: INSULIN LISPRO (humaLOG) 300 UNIT/3 ML VIAL SQ SCH ×4 (06:40→20:58)
[2016-07-26 06:44] LABS: ALT 37 U/L (21-72); AST 31 U/L (17-59); Alkaline Phosphatase 56 U/L (38-126); Anion Gap 9 mmol/L; Blood Urea Nitrogen 33 mg/dL (9-20); Carbon Dioxide 31 mmol/L (22-30); Chloride 101 mmol/L (98-107); Glucose 108 mg/dL (74-99); Non-African American GFR(MDRD) >60 (>60 ml/min/1.73 sqM); Sodium 141 mmol/L (137-145); Total Bilirubin 0.4 mg/dL (0.2-1.3); Total Protein 5.1 g/dL (6.3-8.2)
[2016-07-26 06:51] LABS: Potassium 2.7 mmol/L (3.5-5.1)
[2016-07-26] MEDS ORDERED: Potassium Replacement Protocol 1 EACH MISC MISCELLANE PRN (06:59)
--- NOTE | 2016-07-26 07:37 | XR ---
EXAMINATION TYPE: XR chest 1V portable DATE OF EXAM: 07/26/2016 7:26 AM COMPARISON: 07/25/2016 INDICATION: Pneumonia TECHNIQUE: Single frontal view of the chest is obtained. FINDINGS: The heart size is normal. The pulmonary vasculature is normal. Mild bibasilar infiltrates are present. This could be chronic in nature. A large emphysematous change s are present especially in the right upper lobe. IMPRESSION: 1. Mild bibasilar infiltrates. This could be chronic scarring. Mild bibasilar atelectasis could be co nsidered. Continued follow-up is recommended. 2. COPD
[2016-07-26] MEDS: POTASSIUM CHLORIDE ER 20 MEQ TAB.ER PO SCH ×8 (07:58→23:16)
--- NOTE | 2016-07-26 08:09 | P.PN ---
Subjective Principal diagnosis: Shortness of breath. The patient comes the hospital for significant weakness and shortness of breath. Bibasilar infiltrates are noted. However, d-dimer is elevated and he is now has intermediate probability for pulmonary embolus. Pulmonology has been consulted question need for Xarelto or Eliquis. He states significant weakness. Question ECF possibility. No sniffing chest pain or shortness of breath. He is a former to pack per day smoker. Objective - Vital Signs Vital signs: Vital Signs Temp 97.9 F 07/26/16 04:00 Pulse 88 07/26/16 04:00 Resp 18 07/26/16 04:00 BP 115/74 07/26/16 04:00 Pulse Ox 97 07/26/16 04:00 Intake & Output 07/25/16 07/26/16 07/26/16 18:59 06:59 18:59 Intake Total 337 1560.347 Output Total 0 1000 Balance 337 560.347 Weight 56.5 kg 56.5 kg Intake: IV 1200 Sodium Chloride 0.9% 1, 1200 000 ml @ 100 mls/hr IV . Q10H [facility] Rx#:[id number] Intake, IV Titration 160.347 Amount Heparin Sodium,Porcine/ 160.347 D5w Pmx 25,000 unit In Dextrose/Water 1 500ml. bag @ 18 UNITS/KG/HR 20. 34 mls/hr IV .Q24H [facility] Rx #:[id number] Oral 337 200 Output: Urine 0 1000 Other: Voiding Method Toilet Urinal # Voids 1 # Bowel Movements 0 - Constitutional General appearance: Present: thin - EENT Eyes: Absent: abnormal pupil - Respiratory Respiratory: bilateral: diminished - Cardiovascular Rhythm: regular Heart sounds: normal: S1, S2 - Gastrointestinal General gastrointestinal: Present: soft. Absent: tenderness - Integumentary Integumentary: Present: decreased turgor, rash - Labs CBC & Chem 7: 07/26/16 05:22 07/26/16 05:22 Labs: Abnormal Lab Results - Last 24 Hours (Table) 07/25/16 07/25/16 07/25/16 Range/Units 12:00 14:26 16:43 RBC (4.30-5.90) m/uL Hgb (13.0-17.5) gm/dL Hct (39.0-53.0) % Neutrophils # (1.3-7.7) k/uL Lymphocytes # (1.0-4.8) k/uL APTT (22.0-30.0) sec D-Dimer 2.41 H (<0.60) mg/L FEU Potassium (3.5-5.1) mmol/L Carbon Dioxide (22-30) mmol/L BUN (9-20) mg/dL Glucose (74-99) mg/dL POC Glucose (mg/dL) 172 H 139 H (75-99) mg/dL Calcium (8.4-10.2) mg/dL Total Protein (6.3-8.2) g/dL Albumin (3.5-5.0) g/dL 07/25/16 07/25/16 07/26/16 Range/Units 21:10 22:10 05:22 RBC 2.89 L 2.77 L (4.30-5.90) m/uL Hgb 9.0 L 8.5 L (13.0-17.5) gm/dL Hct 27.6 L 26.3 L (39.0-53.0) % Neutrophils # 8.6 H (1.3-7.7) k/uL Lymphocytes # 0.3 L 0.3 L (1.0-4.8) k/uL APTT (22.0-30.0) sec D-Dimer (<0.60) mg/L FEU Potassium (3.5-5.1) mmol/L Carbon Dioxide (22-30) mmol/L BUN (9-20) mg/dL Glucose (74-99) mg/dL POC Glucose (mg/dL) 217 H (75-99) mg/dL Calcium (8.4-10.2) mg/dL Total Protein (6.3-8.2) g/dL Albumin (3.5-5.0) g/dL 07/26/16 07/26/16 07/26/16 Range/Units 05:22 05:22 06:21 RBC (4.30-5.90) m/uL Hgb (13.0-17.5) gm/dL Hct (39.0-53.0) % Neutrophils # (1.3-7.7) k/uL Lymphocytes # (1.0-4.8) k/uL APTT 91.0 H (22.0-30.0) sec D-Dimer (<0.60) mg/L FEU Potassium 2.7 L* (3.5-5.1) mmol/L Carbon Dioxide 31 H (22-30) mmol/L BUN 33 H (9-20) mg/dL Glucose 108 H (74-99) mg/dL POC Glucose (mg/dL) 134 H (75-99) mg/dL Calcium 8.0 L (8.4-10.2) mg/dL Total Protein 5.1 L (6.3-8.2) g/dL Albumin 2.6 L (3.5-5.0) g/dL Microbiology - Last 24 Hours (Table) 07/22/16 22:43 Urine Culture - Final Urine,Voided Assessment and Plan (1) Community acquired bacterial pneumonia Status: Acute (2) Fall Status: Acute (3) Weakness Status: Acute Plan: Hypokalemia. Placed on appropriate protocol. Heparin lock IV at this time. Question need for Eliquis versus Xarelto. Continue heparin at this time. Pulmonology has been consulted. Check CBC in a.m. with history of anemia, we will go ahead and check guaiac for stool. Prognosis is guarded secondary to advanced age and multiple comorbidities from a respiratory perspective. Time with Patient: Less than 30
[2016-07-26] MEDS: IPRATROPIUM-ALBUTEROL 3 ML NEB INHALATION SCH ×4 (08:45→20:17)
[2016-07-26] MEDS: BUDESONIDE 0.5 MG/2 ML NEBU INHALATION SCH ×2 (08:46→20:17)
[2016-07-26] MEDS: ASPIRIN 81 MG CHEW PO SCH (09:52)
[2016-07-26] MEDS: ATORVASTATIN 80 MG TAB PO SCH (09:52)
--- NOTE | 2016-07-26 11:23 | P.PN ---
Subjective Principal diagnosis: Syncope This is an 81-year-old gentleman with history of hyperlipidemia, hypertension, who presented to the hospital following a syncopal episode. Troponin levels 0.5, 0.3, 0.2. Creatinine on admission 2.3. Hemoglobin on admission 12.6, 8.5 this morning. White blood cell count on admission 14.6. 9.2 this morning. Blood pressure 105/59. Heart rate in the 80s. Orthostatics negative. Echocardiogram with Doppler study was performed which revealed mildly enlarged right atrium with severely enlarged right ventricle. Mild pulmonary hypertension. Ejection fraction 55-60%. CT of the brain did not reveal any acute intracranial abnormality. D-dimer which was ordered yesterday came back at 2.4, VQ scan of the chest was performed which revealed intermediate probability for pulmonary embolism. Patient is currently on IV heparin. Potassium this morning 2.7 which is being replaced. Dr. Bob is following with the patient from a pulmonary perspective, his recommendation at this time is to continue the IV heparin, patient does require anticoagulation for the pulmonary embolism, however he does have frequent falls. Arrangements are being made for ECF placement. Further discussions by Dr. Wise with the daughter will be made before initiating oral anticoagulation. Patient will be transferred to medical surgical unit today. Objective - Vital Signs Vital signs: Vital Signs Temp 97.5 F L 07/26/16 09:50 Pulse 101 H 07/26/16 09:50 Resp 20 07/26/16 09:50 BP 105/59 07/26/16 09:50 Pulse Ox 93 L 07/26/16 09:50 Intake & Output 07/25/16 07/26/16 07/26/16 18:59 06:59 18:59 Intake Total 337 1560.347 300 Output Total 0 1000 Balance 337 560.347 300 Weight 56.5 kg 56.5 kg Intake: IV 1200 Sodium Chloride 0.9% 1, 1200 000 ml @ 100 mls/hr IV . Q10H [facility] Rx#:[id number] Intake, IV Titration 160.347 Amount Heparin Sodium,Porcine/ 160.347 D5w Pmx 25,000 unit In Dextrose/Water 1 500ml. bag @ 18 UNITS/KG/HR 20. 34 mls/hr IV .Q24H [facility] Rx #:[id number] Oral 337 200 300 Output: Urine 0 1000 Other: Voiding Method Toilet Urinal # Voids 1 # Bowel Movements 0 - Exam PHYSICAL EXAMINATION: HEENT: Head is atraumatic, normocephalic. Pupils equal, round. Neck is supple. There is no elevated jugular venous pressure. HEART EXAMINATION: S1 and S2 1 systolic murmur is heard. CHEST EXAMINATION: Lungs are clear to auscultation and precussion. No chest wall tenderness is noted on palpation or with deep breathing. ABDOMEN: Soft, nontender. Bowel sounds are heard. No organomegaly noted. EXTREMITIES: 2+ peripheral pulses with no evidence of peripheral edema and no calf tenderness noted. NEUROLOGIC patient is awake, alert and oriented -3. . - Labs CBC & Chem 7: 07/26/16 05:22 07/26/16 05:22 Labs: Abnormal Lab Results - Last 24 Hours (Table) 07/25/16 07/25/16 07/25/16 Range/Units 12:00 14:26 16:43 RBC (4.30-5.90) m/uL Hgb (13.0-17.5) gm/dL Hct (39.0-53.0) % Neutrophils # (1.3-7.7) k/uL Lymphocytes # (1.0-4.8) k/uL APTT (22.0-30.0) sec D-Dimer 2.41 H (<0.60) mg/L FEU Potassium (3.5-5.1) mmol/L Carbon Dioxide (22-30) mmol/L BUN (9-20) mg/dL Glucose (74-99) mg/dL POC Glucose (mg/dL) 172 H 139 H (75-99) mg/dL Calcium (8.4-10.2) mg/dL Total Protein (6.3-8.2) g/dL Albumin (3.5-5.0) g/dL 07/25/16 07/25/16 07/26/16 Range/Units 21:10 22:10 05:22 RBC 2.89 L 2.77 L (4.30-5.90) m/uL Hgb 9.0 L 8.5 L (13.0-17.5) gm/dL Hct 27.6 L 26.3 L (39.0-53.0) % Neutrophils # 8.6 H (1.3-7.7) k/uL Lymphocytes # 0.3 L 0.3 L (1.0-4.8) k/uL APTT (22.0-30.0) sec D-Dimer (<0.60) mg/L FEU Potassium (3.5-5.1) mmol/L Carbon Dioxide (22-30) mmol/L BUN (9-20) mg/dL Glucose (74-99) mg/dL POC Glucose (mg/dL) 217 H (75-99) mg/dL Calcium (8.4-10.2) mg/dL Total Protein (6.3-8.2) g/dL Albumin (3.5-5.0) g/dL 07/26/16 07/26/16 07/26/16 Range/Units 05:22 05:22 06:21 RBC (4.30-5.90) m/uL Hgb (13.0-17.5) gm/dL Hct (39.0-53.0) % Neutrophils # (1.3-7.7) k/uL Lymphocytes # (1.0-4.8) k/uL APTT 91.0 H (22.0-30.0) sec D-Dimer (<0.60) mg/L FEU Potassium 2.7 L* (3.5-5.1) mmol/L Carbon Dioxide 31 H (22-30) mmol/L BUN 33 H (9-20) mg/dL Glucose 108 H (74-99) mg/dL POC Glucose (mg/dL) 134 H (75-99) mg/dL Calcium 8.0 L (8.4-10.2) mg/dL Total Protein 5.1 L (6.3-8.2) g/dL Albumin 2.6 L (3.5-5.0) g/dL Microbiology - Last 24 Hours (Table) 07/22/16 22:43 Urine Culture - Final Urine,Voided Assessment and Plan (1) Syncope Status: Acute (2) Elevated troponin Status: Acute (3) Anemia Status: Acute (4) ARF (acute renal failure) Status: Acute (5) Weakness Status: Acute (6) Pulmonary embolism Status: Acute Plan: From cardiology's perspective, no orthostatics were noted. Patient is currently on IV heparin for the newly diagnosed pulmonary embolism. Pulmonary is following. From cardiology's perspective, we will follow this patient with you now on an as-needed basis only, please don't hesitate to call with any questions. DNP note has been reviewed, I agree with a documented findings and plan of care. Patient was seen and examined.
[2016-07-26 12:00] LABS: Glucose,Whole Blood 236 mg/dL (75-99)
[2016-07-26 12:23] LABS: Basophils % (A) 0 %; CH 31.6; CHCM 32.8; Eosinophils # (A) 0.1 k/uL (0-0.7); Eosinophils % (A) 1 %; HCT 29.4 % (39.0-53.0); HDW 3.12; HGB 9.7 gm/dL (13.0-17.5); Luc # (Auto) 0.04; Luc % (Auto) 0; Lymphocytes # (A) 0.4 k/uL (1.0-4.8); Lymphocytes % (A) 3 %; MCH 31.8 pg (25.0-35.0); MCHC 32.8 g/dL (31.0-37.0); MCV 97.1 fL (80.0-100.0); Monocytes # (A) 0.4 k/uL (0-1.0); Monocytes % (A) 3 %; Neutrophils # (A) 12.7 k/uL (1.3-7.7); Neutrophils % (A) 93 %; RBC 3.03 m/uL (4.30-5.90); RDW 14.3 % (11.5-15.5); WBC 13.6 k/uL (3.8-10.6); WBC (Perox) 14.93
[2016-07-26] MEDS ORDERED: MAGNESIUM SULFATE-D5W PMX 1 GM in DEXTROSE/WATER 1 100ML.BAG IVPB ONE (16:31)
--- NOTE | 2016-07-26 16:37 | PN ---
Patient seen, evaluated and examined on the sixth floor. The daughter is present at bedside. Care plan discussed with her at length as well as ( ) from cardiovascular services. The patient is breathing comfortably. Bruising on the face has improved. Denies any chest pain at this point in time. Patient has been on IV heparin now. Patient remains on empiric antibiotics and breathing treatments and steroids as well. His last set of vitals include blood pressure is 132/87, respiratory rate is 20, pulse 96, temperature 98, saturation 94 to 97% on 2 liters oxygen. HEENT: Unremarkable. Atraumatic, normocephalic. Pharynx is clear without exudate. NECK: Supple without any lymphadenopathy, jugular venous distention or carotid bruit. LUNGS: Bilateral good air entry is present without any significant rales, rhonchi. Fine expiratory rhonchi are present. ABDOMEN: Soft. No rebound or rigidity. EXTREMITIES: +1 peripheral pulses. NEUROLOGICAL EXAMINATION: Awake, alert. Labs reviewed. White cell count of 13,600, hemoglobin of 9.7, hematocrit 29, platelet count 243,000. PTT is 61.4. Sodium 140, potassium 2.7. BUN and creatinine 33 and 1.09. His stool for occult blood is positive. Influenza A and B are both negative. The radiographic studies reviewed which include chest x-ray performed earlier today reviewed and compared with the prior x-ray. Bibasilar infiltrates present, COPD-like changes seen as well. VQ scan performed late last night reviewed. The patient does have intermediate probability for the PE. However, of note, that most of the perfusion defects are matching defects and large ventilation defects are seen as well. Overall STDs abnormal, but cannot ( ) because high probability. Culture results and report are reviewed as well. The urine culture no growth so far. IMPRESSION: 1. Bilateral pneumonia. 2. Acute chronic obstructive pulmonary disease exacerbation. 3. History of frequent falls in the last several weeks to months. 4. Intermediate probability for pulmonary embolism with many managed ventilation and perfusion defects Plan and recommendation: Continue steroids, breathing treatments, antibiotics. Continue heparin for now will hold on Xarelto. I will check the duplex ultrasound of the lower extremity. Patient does have heme positive stools though. We will monitor hemoglobin closely as well. In order to put on long-term anticoagulation, would require endoscopy. Patient as per discussion with the daughter would likely be placed in ECF . Recurrent falls is another issue. We will follow for now. I will order the duplex ultrasound of the lower extremity and review the V/Q scan with the radiologist. Further recommendations pending.
--- NOTE | 2016-07-26 16:37 | PN ---
ADDENDUM: Patient has significant hypokalemia for which he has been replaced. Of note that he has acute renal failure on arrival but renal functions are progressively improving. Once renal functions are normalized, we will opt to do possibly spiral CT scan of the chest as patient is at intermediate risk for bleeding complications with long-term anticoagulation. For now we will continue the heparin and monitor hemoglobin closely. Will order the labs for tomorrow.
[2016-07-26 17:26] LABS: Glucose,Whole Blood 224 mg/dL (75-99)
--- NOTE | 2016-07-26 17:48 | US ---
EXAMINATION TYPE: US venous doppler duplex LE BI DATE OF EXAM: 07/26/2016 4:57 PM COMPARISON: No previous CLINICAL HISTORY: dvt. SOB SIDE PERFORMED: Bilateral VESSELS IMAGED: External Iliac Vein (EIV) Common Femoral Vein Deep Femoral Vein Greater Saphenous Vein * Femoral Vein Popliteal Vein Small Saphenous Vein * Proximal Calf Veins (* superficial vessels) TECHNOLOGIST IMPRESSION: Right Leg: Appears negative for DVT Left Leg: Appears negative for DVT IMPRESSION: Normal exam. No evidence of deep venous thrombosis in both legs.
--- NOTE | 2016-07-26 18:02 | P.GSCN ---
History of Present Illness Consult date: 07/26/16 Reason for Consult: Hemoccult-positive stool History of present illness: This 81-year-old male who presented to the hospital with syncope. The patient was worked up found have evidence of pneumonia. Patient was found to have Hemoccult-positive stool. His troponins were mildly elevated as well. He is currently on heparin drip. Past Medical History Past Medical History: Hypertension Additional Past Medical History / Comment(s): kidney stones History of Any Multi-Drug Resistant Organisms: None Reported Past Surgical History: Prostate Surgery Past Anesthesia/Blood Transfusion Reactions: No Reported Reaction Past Psychological History: No Psychological Hx Reported Smoking Status: Former smoker Past Alcohol Use History: Rare Past Drug Use History: None Reported - Past Family History Father Family Medical History: No Reported History Medications and Allergies Home Medications Medication Instructions Recorded Confirmed Type Chlorthalidone [Hygroten] 50 mg PO QAM 07/22/16 07/22/16 History Rosuvastatin Calcium [Crestor] 10 mg PO QAM 07/22/16 07/22/16 History Allergies Allergy/AdvReac Type Severity Reaction Status Date / Time No Known Allergies Allergy Verified 07/22/16 17:46 Surgical - Exam Vital Signs Temp Pulse Resp BP Pulse Ox 98.8 F 78 20 169/89 91 L 07/22/16 16:57 07/22/16 16:57 07/22/16 16:57 07/22/16 16:57 07/22/16 16:57 - General well developed, no distress - Eyes PERRL - ENT normal pinna - Neck no masses - Respiratory normal expansion - Cardiovascular Rhythm: regular - Abdomen Abdomen: soft, non tender Results - Labs 07/26/16 12:03 07/26/16 13:59 Abnormal Lab Results - Last 24 Hours (Table) 07/25/16 07/25/16 07/26/16 Range/Units 21:10 22:10 05:22 WBC (3.8-10.6) k/uL RBC 2.89 L 2.77 L (4.30-5.90) m/uL Hgb 9.0 L 8.5 L (13.0-17.5) gm/dL Hct 27.6 L 26.3 L (39.0-53.0) % Neutrophils # 8.6 H (1.3-7.7) k/uL Lymphocytes # 0.3 L 0.3 L (1.0-4.8) k/uL APTT (22.0-30.0) sec Potassium (3.5-5.1) mmol/L Carbon Dioxide (22-30) mmol/L BUN (9-20) mg/dL Glucose (74-99) mg/dL POC Glucose (mg/dL) 217 H (75-99) mg/dL Calcium (8.4-10.2) mg/dL Total Protein (6.3-8.2) g/dL Albumin (3.5-5.0) g/dL 07/26/16 07/26/16 07/26/16 Range/Units 05:22 05:22 06:21 WBC (3.8-10.6) k/uL RBC (4.30-5.90) m/uL Hgb (13.0-17.5) gm/dL Hct (39.0-53.0) % Neutrophils # (1.3-7.7) k/uL Lymphocytes # (1.0-4.8) k/uL APTT 91.0 H (22.0-30.0) sec Potassium 2.7 L* (3.5-5.1) mmol/L Carbon Dioxide 31 H (22-30) mmol/L BUN 33 H (9-20) mg/dL Glucose 108 H (74-99) mg/dL POC Glucose (mg/dL) 134 H (75-99) mg/dL Calcium 8.0 L (8.4-10.2) mg/dL Total Protein 5.1 L (6.3-8.2) g/dL Albumin 2.6 L (3.5-5.0) g/dL 07/26/16 07/26/16 07/26/16 Range/Units 11:58 12:03 12:03 WBC 13.6 H (3.8-10.6) k/uL RBC 3.03 L (4.30-5.90) m/uL Hgb 9.7 L (13.0-17.5) gm/dL Hct 29.4 L (39.0-53.0) % Neutrophils # 12.7 H (1.3-7.7) k/uL Lymphocytes # 0.4 L (1.0-4.8) k/uL APTT 61.5 H (22.0-30.0) sec Potassium (3.5-5.1) mmol/L Carbon Dioxide (22-30) mmol/L BUN (9-20) mg/dL Glucose (74-99) mg/dL POC Glucose (mg/dL) 236 H (75-99) mg/dL Calcium (8.4-10.2) mg/dL Total Protein (6.3-8.2) g/dL Albumin (3.5-5.0) g/dL 07/26/16 07/26/16 Range/Units 13:59 17:24 WBC (3.8-10.6) k/uL RBC (4.30-5.90) m/uL Hgb (13.0-17.5) gm/dL Hct (39.0-53.0) % Neutrophils # (1.3-7.7) k/uL Lymphocytes # (1.0-4.8) k/uL APTT (22.0-30.0) sec Potassium 2.8 L* (3.5-5.1) mmol/L Carbon Dioxide (22-30) mmol/L BUN (9-20) mg/dL Glucose (74-99) mg/dL POC Glucose (mg/dL) 224 H (75-99) mg/dL Calcium (8.4-10.2) mg/dL Total Protein (6.3-8.2) g/dL Albumin (3.5-5.0) g/dL Microbiology - Last 24 Hours (Table) 07/22/16 22:43 Urine Culture - Final Urine,Voided Diabetes panel 07/26/16 07/26/16 Range/Units 05:22 13:59 Sodium 141 (137-145) mmol/L Potassium 2.7 L* 2.8 L* (3.5-5.1) mmol/L Chloride 101 (98-107) mmol/L Carbon Dioxide 31 H (22-30) mmol/L BUN 33 H (9-20) mg/dL Creatinine 1.09 (0.66-1.25) mg/dL Glucose 108 H (74-99) mg/dL Calcium 8.0 L (8.4-10.2) mg/dL AST 31 (17-59) U/L ALT 37 (21-72) U/L Alkaline Phosphatase 56 (38-126) U/L Total Protein 5.1 L (6.3-8.2) g/dL Albumin 2.6 L (3.5-5.0) g/dL Calcium panel 07/26/16 Range/Units 05:22 Calcium 8.0 L (8.4-10.2) mg/dL Albumin 2.6 L (3.5-5.0) g/dL Pituitary panel 07/26/16 07/26/16 Range/Units 05:22 13:59 Sodium 141 (137-145) mmol/L Potassium 2.7 L* 2.8 L* (3.5-5.1) mmol/L Chloride 101 (98-107) mmol/L Carbon Dioxide 31 H (22-30) mmol/L BUN 33 H (9-20) mg/dL Creatinine 1.09 (0.66-1.25) mg/dL Glucose 108 H (74-99) mg/dL Calcium 8.0 L (8.4-10.2) mg/dL Adrenal panel 07/26/16 07/26/16 Range/Units 05:22 13:59 Sodium 141 (137-145) mmol/L Potassium 2.7 L* 2.8 L* (3.5-5.1) mmol/L Chloride 101 (98-107) mmol/L Carbon Dioxide 31 H (22-30) mmol/L BUN 33 H (9-20) mg/dL Creatinine 1.09 (0.66-1.25) mg/dL Glucose 108 H (74-99) mg/dL Calcium 8.0 L (8.4-10.2) mg/dL Total Bilirubin 0.4 (0.2-1.3) mg/dL AST 31 (17-59) U/L ALT 37 (21-72) U/L Alkaline Phosphatase 56 (38-126) U/L Total Protein 5.1 L (6.3-8.2) g/dL Albumin 2.6 L (3.5-5.0) g/dL Assessment and Plan Plan: Hemoccult-positive stool. Patient will be considered for EGD once he is medically stable.
[2016-07-26] MEDS: LEVOFLOXACIN 750 MG TAB PO SCH (20:14)
[2016-07-26 21:12] LABS: Glucose,Whole Blood 205 mg/dL (75-99)
[2016-07-27] MEDS: HEPARIN SODIUM,PORCINE/D5W PMX 25,000 UNIT in DEXTROSE/WATER 1 500ML.BAG IV SCH ×2 (00:22→22:00)
[2016-07-27 06:17] LABS: Basophils % (A) 0 %; CH 31.8; CHCM 33.6; Eosinophils % (A) 0 %; HCT 28.7 % (39.0-53.0); HDW 3.04; HGB 9.4 gm/dL (13.0-17.5); Luc # (Auto) 0.06; Luc % (Auto) 1; Lymphocytes # (A) 0.3 k/uL (1.0-4.8); Lymphocytes % (A) 3 %; MCH 31.2 pg (25.0-35.0); MCHC 32.7 g/dL (31.0-37.0); MCV 95.5 fL (80.0-100.0); Mean Platelet Volume 6.9; Monocytes # (A) 0.3 k/uL (0-1.0); Monocytes % (A) 3 %; Neutrophils # (A) 11.1 k/uL (1.3-7.7); Neutrophils % (A) 94 %; RDW 14.3 % (11.5-15.5); WBC 11.8 k/uL (3.8-10.6); WBC (Perox) 12.63
[2016-07-27 06:37] LABS: ALT 56 U/L (21-72); AST 47 U/L (17-59); Alkaline Phosphatase 62 U/L (38-126); Anion Gap 10 mmol/L; Blood Urea Nitrogen 40 mg/dL (9-20); Calcium 8.2 mg/dL (8.4-10.2); Carbon Dioxide 28 mmol/L (22-30); Chloride 100 mmol/L (98-107); Glucose 145 mg/dL (74-99); Magnesium 1.7 mg/dL (1.6-2.3); Non-African American GFR(MDRD) >60 (>60 ml/min/1.73 sqM); Potassium 4.3 mmol/L (3.5-5.1); Sodium 138 mmol/L (137-145); Total Bilirubin 0.3 mg/dL (0.2-1.3); Total Protein 5.4 g/dL (6.3-8.2)
[2016-07-27 06:41] LABS: Glucose,Whole Blood 153 mg/dL (75-99)
[2016-07-27] MEDS: INSULIN LISPRO (humaLOG) 300 UNIT/3 ML VIAL SQ SCH ×4 (06:58→20:56)
[2016-07-27] MEDS: methylPREDNISolone SOD SUCCI 40 MG/ML 1 ML VIAL IV SCH ×4 (06:58→22:24)
[2016-07-27] MEDS: BUDESONIDE 0.5 MG/2 ML NEBU INHALATION SCH ×2 (08:22→19:38)
[2016-07-27] MEDS: IPRATROPIUM-ALBUTEROL 3 ML NEB INHALATION SCH ×4 (08:22→19:39)
[2016-07-27] MEDS: ATORVASTATIN 80 MG TAB PO SCH (09:12)
[2016-07-27] MEDS: ASPIRIN 81 MG CHEW PO SCH (09:12)
--- NOTE | 2016-07-27 10:10 | P.PN ---
Progress Note - Text The patient's hemoglobin is stable. Possible EGD Friday if he's medically cleared.
[2016-07-27 11:47] LABS: Glucose,Whole Blood 188 mg/dL (75-99)
[2016-07-27] MEDS ORDERED: RX INFO: IV CONTRAST WAS GIVEN 1 EACH MISC MISCELLANE PRN ×2 (15:57→16:13)
--- NOTE | 2016-07-27 16:20 | P.PN ---
Subjective This is a 81-year-old gentleman was seen in cross coverage for Dr. Szymanski. Patient has a history of a disagreement hypertension came in the hospital sustaining a fall secondary to syncopal episode. The patient apparently had an elevated d-dimer and VQ scan of the chest was noted to have intermittent probability for a pulmonary embolism. Patient was started on IV heparin however patient did sustain a recent fall. Patient had an echocardiogram done with a EF of 55-60%. States to be feeling slightly better has a cough that is productive in nature denies any nausea vomiting or diarrhea at this time Objective - Vital Signs Vital signs: Vital Signs Temp 97.8 F 07/27/16 08:00 Pulse 84 07/27/16 15:36 Resp 18 07/27/16 08:00 BP 118/73 07/27/16 08:00 Pulse Ox 93 L 07/27/16 08:00 Intake & Output 07/26/16 07/27/16 07/27/16 18:59 06:59 18:59 Intake Total 1180 559.645 120 Output Total 350 1205 Balance 830 -645.355 120 Weight 56.8 kg Intake: IV 304 120 120 Heparin Sodium,Porcine/ 144 D5w Pmx 25,000 unit In Dextrose/Water 1 500ml. bag @ 12 UNITS/KG/HR 16. 32 mls/hr IV .Q24H [facility] Rx #:[id number] Sodium Chloride 0.9% 1, 160 120 120 000 ml @ 20 mls/hr IV . Q24H [facility] Rx#:[id number] Intake, IV Titration 439.645 Amount Heparin Sodium,Porcine/ 439.645 D5w Pmx 25,000 unit In Dextrose/Water 1 500ml. bag @ 18 UNITS/KG/HR 20. 34 mls/hr IV .Q24H [facility] Rx #:[id number] Oral 876 Output: Urine 350 1205 Other: Voiding Method Toilet Toilet Toilet Urinal Urinal Urinal # Voids 1 1 # Bowel Movements 1 1 - Exam Physical exam Gen. appearance oriented 3 in no distress Neck is supple no JVD Lungs diminished breath sounds some wheezing appreciated Heart S1-S2 heard regular rate and rhythm no murmurs appreciated Abdomen is soft nontender no organomegaly bowel sounds are intact Neurologically cranial nerves II-12 grossly intact no focal motor or sensory deficits noted Skin tubal ecchymosis noted there is a lesion on the toe of the right foot appears to be previous bleed. - Labs CBC & Chem 7: 07/27/16 05:40 07/27/16 05:40 Labs: Abnormal Lab Results - Last 24 Hours (Table) 07/26/16 07/26/16 07/26/16 Range/Units 17:24 20:20 20:42 WBC (3.8-10.6) k/uL RBC (4.30-5.90) m/uL Hgb (13.0-17.5) gm/dL Hct (39.0-53.0) % Neutrophils # (1.3-7.7) k/uL Lymphocytes # (1.0-4.8) k/uL APTT (22.0-30.0) sec Potassium 3.3 L (3.5-5.1) mmol/L BUN (9-20) mg/dL Glucose (74-99) mg/dL POC Glucose (mg/dL) 224 H 205 H (75-99) mg/dL Calcium (8.4-10.2) mg/dL Total Protein (6.3-8.2) g/dL Albumin (3.5-5.0) g/dL 07/27/16 07/27/16 07/27/16 Range/Units 05:40 05:40 05:40 WBC 11.8 H (3.8-10.6) k/uL RBC 3.00 L (4.30-5.90) m/uL Hgb 9.4 L (13.0-17.5) gm/dL Hct 28.7 L (39.0-53.0) % Neutrophils # 11.1 H (1.3-7.7) k/uL Lymphocytes # 0.3 L (1.0-4.8) k/uL APTT 46.4 H (22.0-30.0) sec Potassium (3.5-5.1) mmol/L BUN 40 H (9-20) mg/dL Glucose 145 H (74-99) mg/dL POC Glucose (mg/dL) (75-99) mg/dL Calcium 8.2 L (8.4-10.2) mg/dL Total Protein 5.4 L (6.3-8.2) g/dL Albumin 2.8 L (3.5-5.0) g/dL 07/27/16 07/27/16 07/27/16 Range/Units 06:29 11:45 12:31 WBC (3.8-10.6) k/uL RBC (4.30-5.90) m/uL Hgb (13.0-17.5) gm/dL Hct (39.0-53.0) % Neutrophils # (1.3-7.7) k/uL Lymphocytes # (1.0-4.8) k/uL APTT 51.1 H (22.0-30.0) sec Potassium (3.5-5.1) mmol/L BUN (9-20) mg/dL Glucose (74-99) mg/dL POC Glucose (mg/dL) 153 H 188 H (75-99) mg/dL Calcium (8.4-10.2) mg/dL Total Protein (6.3-8.2) g/dL Albumin (3.5-5.0) g/dL Assessment and Plan Plan: #1 syncope #2 indeterminant troponin leak #3 acute on chronic kidney disease #4 suspicion for pulmonary embolism #5 multiple ecchymosis #6 COPD #7 hypokalemia #8 anemia Plan Surgical consultation was obtained already. Evaluation for anemia including an upper endoscopy is being considered at this time. We'll reevaluate the patient tomorrow in regards to clearance for surgery.
[2016-07-27 17:01] LABS: Glucose,Whole Blood 151 mg/dL (75-99)
--- NOTE | 2016-07-27 17:01 | CT ---
EXAMINATION TYPE: CT chest angio for PE DATE OF EXAM: 07/27/2016 4:54 PM COMPARISON: NONE HISTORY: No complaints at time of scan CT DLP: 261.1 mGycm Automated exposure control for dose reduction was used. CONTRAST: CT Chest for pulmonary embolism performed with with IV Contrast, patient injected with 100 mL of Omni paque 350. FINDINGS: There are 3-D post processed images. There is diffuse pulmonary emphysema. This is worse in the right upper lobe. Thoracic aorta is athero matous. There is no evidence of aortic dissection. There is no pericardial effusion. There is a small right pleural effusion and pleural thickening at the right lung base. There is no evidence of a pulmonary mass. I see no filling defects in the pulmonary arteries. There are no hilar masses. There is no mediastina l adenopathy. There is thoracic kyphotic curvature with anterior wedging of T7 and T12. IMPRESSION: No evidence of pulmonary embolism. Pleural and pulmonary scarring at the right lung base. Emphysema. Osteoporotic thoracic compression fractures of uncertain age.
[2016-07-27] MEDS: SODIUM CHLORIDE 0.9% 1,000 ML IV SCH ×2 (17:54→19:43)
--- NOTE | 2016-07-27 20:20 | PN ---
This is an 80-year-old male, seen, evaluated and examined on sixth floor. His shortness of breath slightly better. He is relatively more awake. His mental status is slowly improving. He has been treated with IV heparin and he has been anticoagulated. His VQ scan is indeterminate. Blood pressure 120/70, respiratory rate 20, pulse 72, temperature 97, saturation of 93% on room air. HEENT: Unremarkable. NECK: Supple. LUNGS: Good air entry. HEENT: Unremarkable except some bruising on the face which is improving. NECK: Supple without lymphadenopathy, jugular venous distention or carotid bruit. LUNGS: Bilateral good air entry without any significant rales, rhonchi or rub. HEART: Regular rate and rhythm. S1 and S2 audible. ABDOMEN: Soft. No rebound or rigidity. EXTREMITIES: +1 peripheral pulses. NEUROLOGICAL EXAMINATION: Otherwise, awake and alert. On examination of the right great toe revealed some dry scab. Cardiovascular services are following. Patient has been evaluated from surgical standpoint as well for heme positive stools and severe anemia and being considered for possible EGD later on. His last set of laboratory data reviewed. BUN and creatinine normal, continues to improve is 40/1.05, prerenal azotemia and likely related to intermittent gastrointestinal bleed. Hemoglobin however, has been stable. Patient's labs are reviewed. The duplex ultrasound of the lower extremity is negative for DVT. IMPRESSION: 1. Acute chronic obstructive pulmonary disease exacerbation and tracheobronchitis. 2. Intermediate probability for pulmonary embolism. 3. Heme positive stools, prerenal azotemia. 4. Renal failure, which has resolved and improved. Plan is to continue IV heparin. Continue antibiotics, breathing treatments, steroids, patient will arrange for CT scan of the chest with IV dye to rule out PE as it is critical to establish a diagnosis given that patient has is at risk of complication associated with falls, bleeding and gastrointestinal bleed on long-term, anticoagulation. Will follow.
[2016-07-27 20:45] LABS: Glucose,Whole Blood 192 mg/dL (75-99)
[2016-07-27] MEDS: ACETAMINOPHEN TAB 325 MG TAB PO PRN (21:10)
[2016-07-28] MEDS: SODIUM CHLORIDE 0.9% 1,000 ML IV SCH ×2 (05:20→21:17)
[2016-07-28 05:49] LABS: Glucose,Whole Blood 194 mg/dL (75-99)
[2016-07-28] MEDS: methylPREDNISolone SOD SUCCI 40 MG/ML 1 ML VIAL IV SCH ×3 (06:27→17:47)
[2016-07-28] MEDS: INSULIN LISPRO (humaLOG) 300 UNIT/3 ML VIAL SQ SCH ×4 (06:27→21:14)
[2016-07-28 07:28] LABS: ALT 66 U/L (21-72); AST 68 U/L (17-59); Alkaline Phosphatase 57 U/L (38-126); Anion Gap 8 mmol/L; Blood Urea Nitrogen 42 mg/dL (9-20); Calcium 8.2 mg/dL (8.4-10.2); Carbon Dioxide 27 mmol/L (22-30); Chloride 100 mmol/L (98-107); Glucose 163 mg/dL (74-99); Non-African American GFR(MDRD) >60 (>60 ml/min/1.73 sqM); Potassium 4.3 mmol/L (3.5-5.1); Sodium 135 mmol/L (137-145); Total Bilirubin 0.3 mg/dL (0.2-1.3); Total Protein 5.3 g/dL (6.3-8.2)
[2016-07-28 07:33] LABS: Basophils % (A) 0 %; CH 31.6; Eosinophils % (A) 0 %; HCT 26.6 % (39.0-53.0); HDW 3.04; HGB 8.5 gm/dL (13.0-17.5); Luc # (Auto) 0.06; Luc % (Auto) 1; Lymphocytes # (A) 0.5 k/uL (1.0-4.8); Lymphocytes % (A) 4 %; MCH 30.7 pg (25.0-35.0); MCHC 31.8 g/dL (31.0-37.0); MCV 96.6 fL (80.0-100.0); Monocytes # (A) 0.6 k/uL (0-1.0); Monocytes % (A) 5 %; Neutrophils % (A) 90 %; RBC 2.76 m/uL (4.30-5.90); RDW 14.8 % (11.5-15.5); WBC 12.2 k/uL (3.8-10.6)
[2016-07-28] MEDS: IPRATROPIUM-ALBUTEROL 3 ML NEB INHALATION SCH ×4 (08:08→20:40)
[2016-07-28] MEDS: BUDESONIDE 0.5 MG/2 ML NEBU INHALATION SCH ×2 (08:08→20:40)
[2016-07-28] MEDS: ASPIRIN 81 MG CHEW PO SCH (09:12)
[2016-07-28] MEDS: ATORVASTATIN 80 MG TAB PO SCH (09:12)
[2016-07-28] MEDS: ACETAMINOPHEN TAB 325 MG TAB PO PRN (09:14)
--- NOTE | 2016-07-28 10:22 | P.PN ---
Progress Note - Text Awaiting further medical workup and clearance for possible endoscopy
--- NOTE | 2016-07-28 11:17 | PN ---
Mr. Mundo Espinoza was seen, evaluated, examined, 81-year-old male with problems associated with acute COPD exacerbation tracheobronchitis and right lower lobe pneumonia. The patient had an indeterminate CT scan ( ) the patient clinically doing well, and respiratory status is slightly better. Patient has significant anemia for which he is being evaluated for endoscopy for tomorrow. The VQ scan was indeterminate. The duplex ultrasound was negative. I obtained a CT scan of the chest, which was negative for PE, extensive bullous lung disease and right lower lobe scarring versus pneumonia was seen. He is breathing comfortably. Denies any chest pain. His last set of vitals include blood pressure is 107/74, respiratory rate 20, pulse 90, temperature 98, saturation of 92%. HEENT: Unremarkable. NECK: Supple. LUNGS: Poor air entry bilaterally with fine expiratory rhonchi. HEART: Regular rate and rhythm. S1 and S2 audible. ABDOMEN: Soft. No rebound or rigidity. EXTREMITIES: +1 peripheral pulses. NEUROLOGICAL EXAMINATION: Otherwise, awake and alert. IMPRESSION: 1. Acute chronic obstructive pulmonary disease exacerbation. 2. Purulent tracheobronchitis. 3. Right lower lobe pneumonia. 4. No conclusive evidence of pulmonary embolism or venous thrombosis is seen. Patient is a high risk for long-term anticoagulation and we will DC the heparin and put the patient on subcu heparin only. 5. Gastrointestinal bleed with acute blood loss anemia. The patient is being evaluated for endoscopy by surgery tomorrow. Will follow.
[2016-07-28 12:02] LABS: Glucose,Whole Blood 162 mg/dL (75-99)
--- NOTE | 2016-07-28 15:38 | P.PN ---
Subjective This is a 81-year-old gentleman was seen in cross coverage for Dr. Szymanski. Patient has a history of a hypertension came in the hospital sustaining a fall secondary to syncopal episode. The patient apparently had an elevated d-dimer and VQ scan of the chest was noted to have intermittent probability for a pulmonary embolism. Patient was started on IV heparin however patient did sustain a recent fall. Patient had an echocardiogram done with a EF of 55-60%. States to be feeling slightly better has a cough that is productive in nature denies any nausea vomiting or diarrhea at this time. 07/28/16 States to have a cough minimally productive in nature. Patient's heparin turned off. Hemoglobin is stable. Denies having any further complaints. Objective - Vital Signs Vital signs: Vital Signs Temp 96.3 F L 07/28/16 08:00 Pulse 105 H 07/28/16 12:00 Resp 20 07/28/16 12:00 BP 111/68 07/28/16 12:00 Pulse Ox 92 L 07/28/16 08:00 Intake & Output 07/27/16 07/28/16 07/28/16 18:59 06:59 18:59 Intake Total 360 756.456 630 Output Total 200 600 400 Balance 160 156.456 230 Weight 58 kg 58 kg Intake: IV 120 450 450 Sodium Chloride 0.9% 1, 120 000 ml @ 20 mls/hr IV . Q24H [facility] Rx#:[id number] Sodium Chloride 0.9% 1, 450 450 000 ml @ 75 mls/hr IV . [id number] [facility] Rx#:[id number] Intake, IV Titration 306.456 Amount Heparin Sodium,Porcine/ 306.456 D5w Pmx 25,000 unit In Dextrose/Water 1 500ml. bag @ 18 UNITS/KG/HR 20. 34 mls/hr IV .Q24H [facility] Rx #:[id number] Oral 240 180 Output: Urine 200 600 400 Other: Voiding Method Toilet Toilet Toilet Urinal Urinal Urinal # Voids 1 - Exam Physical exam Gen. appearance oriented 3 in no distress Neck is supple no JVD Lungs diminished breath sounds some wheezing appreciated Heart S1-S2 heard regular rate and rhythm no murmurs appreciated Abdomen is soft nontender no organomegaly bowel sounds are intact Neurologically cranial nerves II-12 grossly intact no focal motor or sensory deficits noted Skin tubal ecchymosis noted there is a lesion on the toe of the right foot appears to be previous bleed. - Labs CBC & Chem 7: 07/28/16 06:22 07/28/16 06:22 Labs: Abnormal Lab Results - Last 24 Hours (Table) 07/27/16 07/27/16 07/28/16 Range/Units 16:58 20:41 05:47 WBC (3.8-10.6) k/uL RBC (4.30-5.90) m/uL Hgb (13.0-17.5) gm/dL Hct (39.0-53.0) % Neutrophils # (1.3-7.7) k/uL Lymphocytes # (1.0-4.8) k/uL APTT (22.0-30.0) sec Sodium (137-145) mmol/L BUN (9-20) mg/dL Glucose (74-99) mg/dL POC Glucose (mg/dL) 151 H 192 H 194 H (75-99) mg/dL Calcium (8.4-10.2) mg/dL AST (17-59) U/L Total Protein (6.3-8.2) g/dL Albumin (3.5-5.0) g/dL 07/28/16 07/28/16 07/28/16 Range/Units 06:22 06:22 06:22 WBC 12.2 H (3.8-10.6) k/uL RBC 2.76 L (4.30-5.90) m/uL Hgb 8.5 L (13.0-17.5) gm/dL Hct 26.6 L (39.0-53.0) % Neutrophils # 11.0 H (1.3-7.7) k/uL Lymphocytes # 0.5 L (1.0-4.8) k/uL APTT 54.4 H (22.0-30.0) sec Sodium 135 L (137-145) mmol/L BUN 42 H (9-20) mg/dL Glucose 163 H (74-99) mg/dL POC Glucose (mg/dL) (75-99) mg/dL Calcium 8.2 L (8.4-10.2) mg/dL AST 68 H (17-59) U/L Total Protein 5.3 L (6.3-8.2) g/dL Albumin 2.7 L (3.5-5.0) g/dL 07/28/16 Range/Units 11:46 WBC (3.8-10.6) k/uL RBC (4.30-5.90) m/uL Hgb (13.0-17.5) gm/dL Hct (39.0-53.0) % Neutrophils # (1.3-7.7) k/uL Lymphocytes # (1.0-4.8) k/uL APTT (22.0-30.0) sec Sodium (137-145) mmol/L BUN (9-20) mg/dL Glucose (74-99) mg/dL POC Glucose (mg/dL) 162 H (75-99) mg/dL Calcium (8.4-10.2) mg/dL AST (17-59) U/L Total Protein (6.3-8.2) g/dL Albumin (3.5-5.0) g/dL Assessment and Plan Plan: #1 syncope #2 indeterminant troponin leak #3 acute on chronic kidney disease #4 suspicion for pulmonary embolism #5 multiple ecchymosis #6 COPD #7 hypokalemia #8 anemia Plan Heparin was discontinued. It appears the V/Q could've been positive due to chronic lung disease. Patient is currently off oxygen. In regards to eval for anemia workup including iron ferritin B12 and reticulocyte count will be done. We'll defer to Dr. Szymanski in regards to treating if there is underlying deficiencies before initiating workup including endoscopy.
[2016-07-28 16:50] LABS: Glucose,Whole Blood 148 mg/dL (75-99)
[2016-07-28 20:35] LABS: Glucose,Whole Blood 183 mg/dL (75-99)
[2016-07-28] MEDS: ATENOLOL 25 MG TAB PO SCH (21:12)
[2016-07-28] MEDS: HEPARIN SODIUM,PORCINE 5,000 UNIT/ML 1 ML VIAL SQ SCH (21:12)
[2016-07-28] MEDS: LEVOFLOXACIN 750 MG TAB PO SCH (21:12)
[2016-07-28] MEDS: IPRATROPIUM-ALBUTEROL 3 ML NEB INHALATION PRN (23:55)
[2016-07-29] MEDS ORDERED: HEPARIN SODIUM,PORCINE 5,000 UNIT/ML 1 ML VIAL IV PRN (00:11)
[2016-07-29] MEDS ORDERED: HEPARIN SODIUM,PORCINE 5,000 UNIT/ML 1 ML VIAL IV ONE (00:11)
[2016-07-29] MEDS: ACETAMINOPHEN TAB 325 MG TAB PO PRN (00:13)
[2016-07-29] MEDS: methylPREDNISolone SOD SUCCI 40 MG/ML 1 ML VIAL IV SCH ×4 (00:16→21:00)
[2016-07-29] MEDS: HEPARIN SODIUM,PORCINE/D5W PMX 25,000 UNIT in DEXTROSE/WATER 1 500ML.BAG IV SCH (00:38)
[2016-07-29 00:55] LABS: Basophils % (A) 0 %; CH 31.9; CHCM 33.3; Eosinophils % (A) 0 %; HCT 27.6 % (39.0-53.0); HDW 3.01; HGB 8.8 gm/dL (13.0-17.5); Luc # (Auto) 0.09; Luc % (Auto) 1; Lymphocytes # (A) 0.5 k/uL (1.0-4.8); Lymphocytes % (A) 4 %; MCH 30.6 pg (25.0-35.0); MCHC 31.7 g/dL (31.0-37.0); MCV 96.6 fL (80.0-100.0); Mean Platelet Volume 8.1; Monocytes # (A) 0.6 k/uL (0-1.0); Monocytes % (A) 5 %; Neutrophils # (A) 12.8 k/uL (1.3-7.7); Neutrophils % (A) 91 %; RBC 2.86 m/uL (4.30-5.90); RDW 15.1 % (11.5-15.5); WBC (Perox) 14.91
[2016-07-29 01:07] LABS: INR 1.2 (<1.1); Partial Thromboplastin Time 31.5 sec (22.0-30.0)
[2016-07-29] MEDS ORDERED: MORPHINE SULFATE 2 MG/ML SYRINGE IVP PRN (03:22)
[2016-07-29] MEDS: IPRATROPIUM-ALBUTEROL 3 ML NEB INHALATION PRN (04:15)
[2016-07-29 06:06] LABS: Glucose,Whole Blood 167 mg/dL (75-99)
[2016-07-29] MEDS: INSULIN LISPRO (humaLOG) 300 UNIT/3 ML VIAL SQ SCH ×4 (06:15→21:00)
[2016-07-29 06:48] LABS: Basophils % (A) 0 %; CH 31.4; CHCM 32.1; Eosinophils % (A) 0 %; HCT 29.2 % (39.0-53.0); HDW 2.89; HGB 9.4 gm/dL (13.0-17.5); Hypochromasia Slight; Luc # (Auto) 0.07; Luc % (Auto) 1; Lymphocytes # (A) 0.5 k/uL (1.0-4.8); Lymphocytes % (A) 4 %; MCH 31.8 pg (25.0-35.0); MCHC 32.3 g/dL (31.0-37.0); MCV 98.5 fL (80.0-100.0); Macrocytosis Slight; Mean Platelet Volume 7.1; Monocytes # (A) 0.4 k/uL (0-1.0); Monocytes % (A) 3 %; Neutrophils # (A) 12.3 k/uL (1.3-7.7); Neutrophils % (A) 93 %; RBC 2.96 m/uL (4.30-5.90); RDW 15.1 % (11.5-15.5); WBC 13.3 k/uL (3.8-10.6); WBC (Perox) 14.24
[2016-07-29 07:08] LABS: Reticulocyte % 3.1 % (0.5-2.0)
[2016-07-29 07:12] LABS: ALT 67 U/L (21-72); AST 63 U/L (17-59); Alkaline Phosphatase 56 U/L (38-126); Anion Gap 7 mmol/L; Blood Urea Nitrogen 44 mg/dL (9-20); Calcium 8.2 mg/dL (8.4-10.2); Carbon Dioxide 30 mmol/L (22-30); Chloride 101 mmol/L (98-107); Glucose 159 mg/dL (74-99); Non-African American GFR(MDRD) >60 (>60 ml/min/1.73 sqM); Potassium 5.3 mmol/L (3.5-5.1); Sodium 138 mmol/L (137-145); Total Bilirubin 0.4 mg/dL (0.2-1.3); Total Protein 5.3 g/dL (6.3-8.2)
--- NOTE | 2016-07-29 08:20 | P.PN ---
Subjective Principal diagnosis: Shortness of breath. This impression an 81-year-old white male essentially admitted for syncope with pneumonia and exacerbation of COPD. The patient had intermediate probability of Embolus and VQ Scan. However, Review by Pulmonology States Possibility That There Is No Significant evidence of true pulmonary embolus. He is scheduled for endoscopy today. He is now on subcutaneous heparin. He states to me that when he gets up he has significant pain and showed me that he has a significant substantial right inguinal hernia Objective - Vital Signs Vital signs: Vital Signs Temp 97.6 F 07/29/16 04:00 Pulse 88 07/29/16 04:27 Resp 20 07/29/16 04:00 BP 108/76 07/29/16 04:00 Pulse Ox 97 07/29/16 04:00 Intake & Output 07/28/16 07/29/16 07/29/16 18:59 06:59 18:59 Intake Total 980 900 Output Total 800 575 Balance 180 325 Weight 58 kg 60 kg Intake: IV 450 900 Sodium Chloride 0.9% 1, 450 900 000 ml @ 75 mls/hr IV . [id number] [facility] Rx#:[id number] Oral 530 Output: Urine 800 575 Other: Voiding Method Toilet Toilet Urinal Urinal # Voids 1 - Constitutional General appearance: Present: thin - EENT Eyes: Absent: abnormal pupil - Respiratory Respiratory: bilateral: diminished - Gastrointestinal General gastrointestinal: Present: soft - Genitourinary Male genitourinary: right inguinal hernia - Integumentary Integumentary: Absent: rash - Labs CBC & Chem 7: 07/29/16 05:58 07/29/16 05:58 Labs: Abnormal Lab Results - Last 24 Hours (Table) 07/28/16 07/28/16 07/28/16 Range/Units 11:46 16:40 20:33 WBC (3.8-10.6) k/uL RBC (4.30-5.90) m/uL Hgb (13.0-17.5) gm/dL Hct (39.0-53.0) % Neutrophils # (1.3-7.7) k/uL Lymphocytes # (1.0-4.8) k/uL Retic Count (0.5-2.0) % APTT (22.0-30.0) sec Potassium (3.5-5.1) mmol/L BUN (9-20) mg/dL Glucose (74-99) mg/dL POC Glucose (mg/dL) 162 H 148 H 183 H (75-99) mg/dL Calcium (8.4-10.2) mg/dL AST (17-59) U/L Total Protein (6.3-8.2) g/dL Albumin (3.5-5.0) g/dL 07/29/16 07/29/16 07/29/16 Range/Units 00:32 00:32 05:58 WBC 14.0 H 13.3 H (3.8-10.6) k/uL RBC 2.86 L 2.96 L (4.30-5.90) m/uL Hgb 8.8 L 9.4 L (13.0-17.5) gm/dL Hct 27.6 L 29.2 L (39.0-53.0) % Neutrophils # 12.8 H 12.3 H (1.3-7.7) k/uL Lymphocytes # 0.5 L 0.5 L (1.0-4.8) k/uL Retic Count (0.5-2.0) % APTT 31.5 H (22.0-30.0) sec Potassium (3.5-5.1) mmol/L BUN (9-20) mg/dL Glucose (74-99) mg/dL POC Glucose (mg/dL) (75-99) mg/dL Calcium (8.4-10.2) mg/dL AST (17-59) U/L Total Protein (6.3-8.2) g/dL Albumin (3.5-5.0) g/dL 07/29/16 07/29/16 07/29/16 Range/Units 05:58 05:58 05:58 WBC (3.8-10.6) k/uL RBC (4.30-5.90) m/uL Hgb (13.0-17.5) gm/dL Hct (39.0-53.0) % Neutrophils # (1.3-7.7) k/uL Lymphocytes # (1.0-4.8) k/uL Retic Count 3.1 H (0.5-2.0) % APTT 44.0 H (22.0-30.0) sec Potassium 5.3 H (3.5-5.1) mmol/L BUN 44 H (9-20) mg/dL Glucose 159 H (74-99) mg/dL POC Glucose (mg/dL) (75-99) mg/dL Calcium 8.2 L (8.4-10.2) mg/dL AST 63 H (17-59) U/L Total Protein 5.3 L (6.3-8.2) g/dL Albumin 2.7 L (3.5-5.0) g/dL 07/29/16 Range/Units 06:04 WBC (3.8-10.6) k/uL RBC (4.30-5.90) m/uL Hgb (13.0-17.5) gm/dL Hct (39.0-53.0) % Neutrophils # (1.3-7.7) k/uL Lymphocytes # (1.0-4.8) k/uL Retic Count (0.5-2.0) % APTT (22.0-30.0) sec Potassium (3.5-5.1) mmol/L BUN (9-20) mg/dL Glucose (74-99) mg/dL POC Glucose (mg/dL) 167 H (75-99) mg/dL Calcium (8.4-10.2) mg/dL AST (17-59) U/L Total Protein (6.3-8.2) g/dL Albumin (3.5-5.0) g/dL Assessment and Plan (1) Community acquired bacterial pneumonia Status: Acute (2) Fall Status: Acute (3) Weakness Status: Acute (4) Right inguinal hernia Status: Acute Plan: Await endoscopy today. I had a long discussion with the patient that we need to get his pulmonary status improved before he can get his inguinal hernia repaired, which is quite significant. Appreciate input from cardiology, general surgery and pulmonology. See orders otherwise. Time with Patient: Less than 30
[2016-07-29] MEDS: ASPIRIN 81 MG CHEW PO SCH (08:28)
[2016-07-29] MEDS: ATENOLOL 25 MG TAB PO SCH (08:28)
[2016-07-29] MEDS: ATORVASTATIN 80 MG TAB PO SCH (08:28)
[2016-07-29] MEDS: BUDESONIDE 0.5 MG/2 ML NEBU INHALATION SCH ×2 (09:03→19:21)
[2016-07-29] MEDS: IPRATROPIUM-ALBUTEROL 3 ML NEB INHALATION SCH ×4 (09:04→19:21)
[2016-07-29 10:01] LABS: Iron 55 ug/dL (49-181)
[2016-07-29 10:10] LABS: % Iron Saturation 24.2 % (20-50); Total Iron Binding Capacity 227 ug/dL (261-462)
[2016-07-29 10:53] LABS: Vitamin B12 667 pg/mL
--- NOTE | 2016-07-29 11:10 | PN ---
An 81-year-old gentleman that initially came to hospital having had an episode of syncope and had mild troponin elevation at that time. He underwent a V/Q scan that was intermediate probability and we thought he may have a pulmonary embolism but went on to have a CT chest that was negative for pulmonary embolism. Last night we were reconsulted as he became very short of breath with activity and complained of neck discomfort. EKG shows a new inferolateral ST-T wave changes. We made a diagnosis of unstable angina and put him back on IV heparin. Patient appears short of breath and is barely able to live flat in the bed. Over the last 3 to 4 weeks he has seen a significant deterioration in his mammary. His daughter is the [employer]. I had a long conversation with her and the patient and patient vacillated between having a cardiac cath and not have any cardiac cath and at this time has decided not to. Will treat him with optimal medical therapy with aspirin, Tenormin, Lipitor, intravenous heparin, nitrates and Plavix. On exam, comfortable at rest. Vital signs are stable. Chest exam reveals occasional rhonchi bilaterally. Heart exam reveals first and second heart sounds. No gallop. Exam of the extremities did not reveal any edema. Peripheral pulses are felt. LABS: Hemoglobin is 9.4, platelet count is 247, creatinine is 1.1. BUN is 44. ASSESSMENT: Unstable angina. PLAN: Patient will be treated with optimal medical therapy.
[2016-07-29 11:58] LABS: Glucose,Whole Blood 125 mg/dL (75-99)
[2016-07-29] MEDS: NITROGLYCERIN OINT 1 INCH/GM PACKET TOPICAL SCH ×3 (12:24→21:00)
[2016-07-29] MEDS: CLOPIDOGREL 75 MG TAB PO SCH (12:24)
[2016-07-29] MEDS: HEPARIN SODIUM,PORCINE 5,000 UNIT/ML 1 ML VIAL SQ SCH ×2 (12:29→20:52)
[2016-07-29] MEDS: SODIUM CHLORIDE 0.9% 1,000 ML IV SCH (12:29)
--- NOTE | 2016-07-29 14:54 | P.PN ---
Subjective Principal diagnosis: Hemoccult positive stool His medicine 81-year-old white male presenting to hospital with syncope and found to have evidence of pneumonia and exacerbation of COPD with stool positive for occult blood. Upon examination, patient denies chills, nausea, vomiting, shortness of breath, chest pain, or abdominal pain. Patient complains of right groin pain when sitting at side of bed. No evidence of overt bleeding. Patient is urinating without difficulty. WBC 13.3. Hemoglobin stable at 9.4. Troponin elevated at 1.930. Objective - Vital Signs Vital signs: Vital Signs Temp 97.1 F L 07/29/16 08:00 Pulse 82 07/29/16 13:10 Resp 20 07/29/16 12:00 BP 96/62 07/29/16 12:00 Pulse Ox 95 07/29/16 12:00 Intake & Output 07/28/16 07/29/16 07/29/16 18:59 06:59 18:59 Intake Total 980 900 389.060 Output Total 800 575 Balance 180 325 389.060 Weight 58 kg 60 kg Intake: IV 450 900 Sodium Chloride 0.9% 1, 450 900 000 ml @ 75 mls/hr IV . [id number] [facility] Rx#:[id number] Intake, IV Titration 149.060 Amount Heparin Sodium,Porcine/ 149.060 D5w Pmx 25,000 unit In Dextrose/Water 1 500ml. bag @ 12 UNITS/KG/HR 13. 92 mls/hr IV .Q24H [facility] Rx #:[id number] Oral 530 240 Output: Urine 800 575 Other: Voiding Method Toilet Toilet Toilet Urinal Urinal Urinal # Voids 1 1 # Bowel Movements 0 - Exam GENERAL: Pt awake and alert, lying in bed, in no acute distress. LUNGS: Breath sounds diminished to auscultation bilaterally. No wheezes, rales , or rhonchi. HEART: Heart S1, S2, no S3 or S4. No murmurs, rubs or gallops. ABDOMEN: Soft, nontender, nondistended, normoactive bowel sounds. No guarding, no rebound. NEUROLOGICAL: Pt oriented x 3. - Genitourinary Male genitourinary: right inguinal hernia - Labs CBC & Chem 7: 07/29/16 05:58 02/13/17 05:58 Labs: Abnormal Lab Results - Last 24 Hours (Table) 07/28/16 07/28/16 07/29/16 Range/Units 16:40 20:33 00:32 WBC 14.0 H (3.8-10.6) k/uL RBC 2.86 L (4.30-5.90) m/uL Hgb 8.8 L (13.0-17.5) gm/dL Hct 27.6 L (39.0-53.0) % Neutrophils # 12.8 H (1.3-7.7) k/uL Lymphocytes # 0.5 L (1.0-4.8) k/uL Retic Count (0.5-2.0) % APTT (22.0-30.0) sec Potassium (3.5-5.1) mmol/L BUN (9-20) mg/dL Glucose (74-99) mg/dL POC Glucose (mg/dL) 148 H 183 H (75-99) mg/dL Calcium (8.4-10.2) mg/dL TIBC (261-462) ug/dL AST (17-59) U/L Troponin I (0.000-0.034) ng/mL Total Protein (6.3-8.2) g/dL Albumin (3.5-5.0) g/dL 07/29/16 07/29/16 07/29/16 Range/Units 00:32 05:58 05:58 WBC 13.3 H (3.8-10.6) k/uL RBC 2.96 L (4.30-5.90) m/uL Hgb 9.4 L (13.0-17.5) gm/dL Hct 29.2 L (39.0-53.0) % Neutrophils # 12.3 H (1.3-7.7) k/uL Lymphocytes # 0.5 L (1.0-4.8) k/uL Retic Count (0.5-2.0) % APTT 31.5 H (22.0-30.0) sec Potassium 5.3 H (3.5-5.1) mmol/L BUN 44 H (9-20) mg/dL Glucose 159 H (74-99) mg/dL POC Glucose (mg/dL) (75-99) mg/dL Calcium 8.2 L (8.4-10.2) mg/dL TIBC 227 L (261-462) ug/dL AST 63 H (17-59) U/L Troponin I (0.000-0.034) ng/mL Total Protein 5.3 L (6.3-8.2) g/dL Albumin 2.7 L (3.5-5.0) g/dL 07/29/16 07/29/16 07/29/16 Range/Units 05:58 05:58 06:04 WBC (3.8-10.6) k/uL RBC (4.30-5.90) m/uL Hgb (13.0-17.5) gm/dL Hct (39.0-53.0) % Neutrophils # (1.3-7.7) k/uL Lymphocytes # (1.0-4.8) k/uL Retic Count 3.1 H (0.5-2.0) % APTT 44.0 H (22.0-30.0) sec Potassium (3.5-5.1) mmol/L BUN (9-20) mg/dL Glucose (74-99) mg/dL POC Glucose (mg/dL) 167 H (75-99) mg/dL Calcium (8.4-10.2) mg/dL TIBC (261-462) ug/dL AST (17-59) U/L Troponin I (0.000-0.034) ng/mL Total Protein (6.3-8.2) g/dL Albumin (3.5-5.0) g/dL 07/29/16 07/29/16 Range/Units 10:45 11:57 WBC (3.8-10.6) k/uL RBC (4.30-5.90) m/uL Hgb (13.0-17.5) gm/dL Hct (39.0-53.0) % Neutrophils # (1.3-7.7) k/uL Lymphocytes # (1.0-4.8) k/uL Retic Count (0.5-2.0) % APTT (22.0-30.0) sec Potassium (3.5-5.1) mmol/L BUN (9-20) mg/dL Glucose (74-99) mg/dL POC Glucose (mg/dL) 125 H (75-99) mg/dL Calcium (8.4-10.2) mg/dL TIBC (261-462) ug/dL AST (17-59) U/L Troponin I 1.930 H* (0.000-0.034) ng/mL Total Protein (6.3-8.2) g/dL Albumin (3.5-5.0) g/dL Assessment and Plan Plan: Impression: 1. Hemoccult positive stool. 2. Right inguinal hernia. Plan: Patient will be considered for EGD and right inguinal hernia repair when medically stable. The above impression and plan have been discussed and directed by Dr. Bourne. Nasima MUNOZ acting as scribe for Dr. Bourne.
[2016-07-29 17:01] LABS: Glucose,Whole Blood 176 mg/dL (75-99)
--- NOTE | 2016-07-29 17:31 | PN ---
DATE OF SERVICE: 07/29/2016 Mr. Mundo Espinoza is seen, evaluated, examined on the sixth floor. Care plan was discussed with Cardiovascular Services as well as his daughter present at bedside and patient at length. Patient has been doing relatively well. He has been resumed on heparin due to some ST-segment changes as well as ventricular tachycardia. Cardiology Service is adjusting. Plan is for maximization of medical therapy. Patient, however, has been evaluated for PE; no conclusive evidence of pulmonary embolism was seen. His duplex ultrasound of extremities was negative. Spiral CT scan is negative. VQ scan showed indeterminate, given the extensive lung disease. CT scan of the chest, however, revealed extensive bullous lung disease. He has been waiting for endoscopy as well, which is currently postponed at this point in time. His troponin came up to 1.9 today. His blood pressure is 100/70, respiratory rate 20, pulse 75, temperature 98, saturation of 95% to 96% on 3 L oxygen. HEENT EXAMINATION: Otherwise unremarkable. Atraumatic, normocephalic. Pharynx is clear without exudate. NECK: Supple without lymphadenopathy, jugular venous distention or carotid bruit. LUNGS: Bilateral poor air entry is present without significant rales, rhonchi or rub. HEART: Regular rate, rhythm. S1, S2 audible. ABDOMEN: Soft. No rebound or rigidity. EXTREMITIES: Plus one peripheral pulses. NEUROLOGICAL EXAMINATION: Otherwise awake and alert. Labs reviewed. Medications reviewed. 1. DuoNeb unit dose 4 times a day. 2. Aspirin 81 mg daily. 3. Atenolol 25 mg daily. 4. Lipitor 80 mg daily. 5. Pulmicort 2 times a day. 6. Plavix 75 mg daily. 7. Heparin drip as per protocol. 8. Levaquin 750 mg every other day. 9. Solu-Medrol 40 q.6. 10. Sliding scale insulin. 11. Morphine for pain management. IMPRESSION: 1. Acute ksr-AM-jquvnyi-elevated myocardial infarction. 2. Gastrointestinal bleed with acute on chronic blood loss anemia. 3. Extensive degree of lung disease secondary to severe chronic obstructive pulmonary disease, emphysema, acute on chronic hypoxic respiratory failure. 4. Intermittent falls. PLAN AND RECOMMENDATIONS: Continue breathing treatments. Continue supportive care, empiric antibiotics. Will change the Solu-Medrol to q.12. Continue other supportive care. Endoscopy once cleared from Surgical Services. Will follow.
[2016-07-29 20:48] LABS: Glucose,Whole Blood 162 mg/dL (75-99)
--- NOTE | 2016-07-29 21:24 | XR ---
EXAMINATION TYPE: XR chest 1V portable DATE OF EXAM: 07/29/2016 9:11 PM COMPARISON: 07/26/2016 HISTORY: COPD. Short of breath. TECHNIQUE: Single frontal view of the chest is obtained. FINDINGS: There are mild infiltrates in the mid and lower lung baum. There are emphysematous lorenzo es in the right upper lobe. There is no heart failure. There are no hilar masses. Thoracic aorta is a theromatous. There is slight blunting of the right costophrenic angle. IMPRESSION: COPD and pulmonary fibrotic changes. Chest x-ray fairly stable compared to last exam. Sm all right pleural effusion and pleural reaction
[2016-07-30 04:07] LABS: Basophils % (A) 0 %; CH 31.7; CHCM 32.8; Eosinophils % (A) 0 %; HCT 27.5 % (39.0-53.0); HDW 2.87; HGB 8.7 gm/dL (13.0-17.5); Luc # (Auto) 0.06; Luc % (Auto) 0; Lymphocytes # (A) 0.5 k/uL (1.0-4.8); Lymphocytes % (A) 3 %; MCH 30.9 pg (25.0-35.0); MCHC 31.6 g/dL (31.0-37.0); MCV 97.7 fL (80.0-100.0); Macrocytosis Slight; Mean Platelet Volume 7.9; Monocytes # (A) 0.5 k/uL (0-1.0); Monocytes % (A) 3 %; Neutrophils # (A) 15.3 k/uL (1.3-7.7); Neutrophils % (A) 93 %; RBC 2.82 m/uL (4.30-5.90); RDW 15.4 % (11.5-15.5); WBC 16.5 k/uL (3.8-10.6)
[2016-07-30 06:12] LABS: Glucose,Whole Blood 130 mg/dL (75-99)
[2016-07-30] MEDS: INSULIN LISPRO (humaLOG) 300 UNIT/3 ML VIAL SQ SCH ×4 (06:12→21:22)
[2016-07-30] MEDS: NITROGLYCERIN OINT 1 INCH/GM PACKET TOPICAL SCH ×4 (06:15→23:31)
[2016-07-30] MEDS: SODIUM CHLORIDE 0.9% 1,000 ML IV SCH ×3 (06:15→23:43)
[2016-07-30] MEDS: HEPARIN SODIUM,PORCINE/D5W PMX 25,000 UNIT in DEXTROSE/WATER 1 500ML.BAG IV SCH (06:17)
--- NOTE | 2016-07-30 08:41 | P.PN ---
Subjective Principal diagnosis: Shortness of breath. Significant present 81-year-old white male essentially admitted for syncopal episode. The patient's doing quite well except significant weakness. He would like to go home but I suspect the fact that he has an untoward difficulty and has fallen multiple times at home, rehab should be instituted. Discharge planning will be consulted today. No voiding symptoms are otherwise noted. He has significant hernia on the right. Objective - Vital Signs Vital signs: Vital Signs Temp 98.3 F 07/30/16 04:00 Pulse 78 07/30/16 04:00 Resp 14 07/30/16 04:00 BP 101/67 07/30/16 04:00 Pulse Ox 92 L 07/30/16 04:00 Intake & Output 07/29/16 07/30/16 07/30/16 18:59 06:59 18:59 Intake Total 389.060 755.228 Output Total 200 Balance 189.060 755.228 Weight 60 kg 59 kg Intake: IV 175 Sodium Chloride 0.9% 1, 175 000 ml @ 75 mls/hr IV . [id number] [facility] Rx#:[id number] Intake, IV Titration 149.060 340.228 Amount Heparin Sodium,Porcine/ 149.060 340.228 D5w Pmx 25,000 unit In Dextrose/Water 1 500ml. bag @ 12 UNITS/KG/HR 13. 92 mls/hr IV .Q24H [facility] Rx #:[id number] Oral 240 240 Output: Urine 200 Other: Voiding Method Toilet Urinal # Voids 1 # Bowel Movements 0 - Constitutional General appearance: Present: thin - EENT Eyes: Absent: abnormal pupil - Respiratory Respiratory: bilateral: rhonchi - Cardiovascular Rhythm: regular Heart sounds: normal: S1, S2 - Genitourinary Male genitourinary: right inguinal hernia - Neurologic Neurologic: Present: CNII-XII intact - Musculoskeletal Musculoskeletal: Present: gait normal, generalized weakness - Labs CBC & Chem 7: 07/30/16 03:38 07/29/16 05:58 Labs: Abnormal Lab Results - Last 24 Hours (Table) 07/29/16 07/29/16 07/29/16 Range/Units 05:58 10:45 11:57 WBC (3.8-10.6) k/uL RBC (4.30-5.90) m/uL Hgb (13.0-17.5) gm/dL Hct (39.0-53.0) % Neutrophils # (1.3-7.7) k/uL Lymphocytes # (1.0-4.8) k/uL APTT (22.0-30.0) sec Potassium 5.3 H (3.5-5.1) mmol/L BUN 44 H (9-20) mg/dL Glucose 159 H (74-99) mg/dL POC Glucose (mg/dL) 125 H (75-99) mg/dL Calcium 8.2 L (8.4-10.2) mg/dL TIBC 227 L (261-462) ug/dL AST 63 H (17-59) U/L Troponin I 1.930 H* (0.000-0.034) ng/mL Total Protein 5.3 L (6.3-8.2) g/dL Albumin 2.7 L (3.5-5.0) g/dL 07/29/16 07/29/16 07/29/16 Range/Units 16:09 17:00 17:50 WBC (3.8-10.6) k/uL RBC (4.30-5.90) m/uL Hgb (13.0-17.5) gm/dL Hct (39.0-53.0) % Neutrophils # (1.3-7.7) k/uL Lymphocytes # (1.0-4.8) k/uL APTT 36.5 H (22.0-30.0) sec Potassium (3.5-5.1) mmol/L BUN (9-20) mg/dL Glucose (74-99) mg/dL POC Glucose (mg/dL) 176 H (75-99) mg/dL Calcium (8.4-10.2) mg/dL TIBC (261-462) ug/dL AST (17-59) U/L Troponin I 2.170 H* (0.000-0.034) ng/mL Total Protein (6.3-8.2) g/dL Albumin (3.5-5.0) g/dL 07/29/16 07/29/16 07/30/16 Range/Units 20:47 22:16 03:38 WBC 16.5 H (3.8-10.6) k/uL RBC 2.82 L (4.30-5.90) m/uL Hgb 8.7 L (13.0-17.5) gm/dL Hct 27.5 L (39.0-53.0) % Neutrophils # 15.3 H (1.3-7.7) k/uL Lymphocytes # 0.5 L (1.0-4.8) k/uL APTT (22.0-30.0) sec Potassium (3.5-5.1) mmol/L BUN (9-20) mg/dL Glucose (74-99) mg/dL POC Glucose (mg/dL) 162 H (75-99) mg/dL Calcium (8.4-10.2) mg/dL TIBC (261-462) ug/dL AST (17-59) U/L Troponin I 1.960 H* (0.000-0.034) ng/mL Total Protein (6.3-8.2) g/dL Albumin (3.5-5.0) g/dL 07/30/16 07/30/16 Range/Units 03:38 06:10 WBC (3.8-10.6) k/uL RBC (4.30-5.90) m/uL Hgb (13.0-17.5) gm/dL Hct (39.0-53.0) % Neutrophils # (1.3-7.7) k/uL Lymphocytes # (1.0-4.8) k/uL APTT 67.7 H (22.0-30.0) sec Potassium (3.5-5.1) mmol/L BUN (9-20) mg/dL Glucose (74-99) mg/dL POC Glucose (mg/dL) 130 H (75-99) mg/dL Calcium (8.4-10.2) mg/dL TIBC (261-462) ug/dL AST (17-59) U/L Troponin I (0.000-0.034) ng/mL Total Protein (6.3-8.2) g/dL Albumin (3.5-5.0) g/dL Assessment and Plan (1) Community acquired bacterial pneumonia Status: Acute (2) Fall Status: Acute (3) Weakness Status: Acute (4) Right inguinal hernia Status: Acute Plan: Discharge planning for probable rehab. Continue physical therapy. Had a long discussion with surgeon as far as holding off on EGD. CBC has been stable. Anticipate discharge in next 24-48 hours.
[2016-07-30] MEDS: IPRATROPIUM-ALBUTEROL 3 ML NEB INHALATION SCH ×4 (09:03→19:15)
[2016-07-30] MEDS: BUDESONIDE 0.5 MG/2 ML NEBU INHALATION SCH ×2 (09:03→19:15)
[2016-07-30] MEDS: CLOPIDOGREL 75 MG TAB PO SCH (09:04)
[2016-07-30] MEDS: methylPREDNISolone SOD SUCCI 40 MG/ML 1 ML VIAL IV SCH ×2 (09:04→21:22)
[2016-07-30] MEDS: ATORVASTATIN 80 MG TAB PO SCH (09:04)
[2016-07-30] MEDS: ASPIRIN 81 MG CHEW PO SCH (09:04)
[2016-07-30] MEDS: HEPARIN SODIUM,PORCINE 5,000 UNIT/ML 1 ML VIAL SQ SCH ×2 (09:04→21:22)
[2016-07-30] MEDS: ATENOLOL 25 MG TAB PO SCH (09:04)
--- NOTE | 2016-07-30 11:42 | P.PN ---
Subjective Principal diagnosis: Hemoccult positive stool, inguinal hernia Patient is a 81-year-old white male presenting to hospital with syncopal episode and found to have evidence of stool positive for occult blood and right inguinal hernia. Upon examination, patient denies chills, nausea, vomiting, or abdominal pain. Denies diarrhea or constipation. Patient is urinating without difficulty. WBC increased to 16.5. Hemoglobin stable at 8.7. Objective - Vital Signs Vital signs: Vital Signs Temp 98.4 F 07/30/16 08:30 Pulse 80 07/30/16 09:24 Resp 22 07/30/16 08:30 BP 107/61 07/30/16 08:30 Pulse Ox 93 L 07/30/16 09:07 Intake & Output 07/29/16 07/30/16 07/30/16 18:59 06:59 18:59 Intake Total 389.060 755.228 Output Total 200 700 Balance 189.060 755.228 -700 Weight 60 kg 59 kg Intake: IV 175 Sodium Chloride 0.9% 1, 175 000 ml @ 75 mls/hr IV . [id number] [facility] Rx#:[id number] Intake, IV Titration 149.060 340.228 Amount Heparin Sodium,Porcine/ 149.060 340.228 D5w Pmx 25,000 unit In Dextrose/Water 1 500ml. bag @ 12 UNITS/KG/HR 13. 92 mls/hr IV .Q24H [facility] Rx #:[id number] Oral 240 240 Output: Urine 200 700 Other: Voiding Method Toilet Urinal # Voids 1 # Bowel Movements 0 - Exam GENERAL: Pt awake and alert, lying in bed, in no acute distress. LUNGS: Breath sounds diminished to auscultation bilaterally. No wheezes, rales , or rhonchi. HEART: Heart S1, S2, no S3 or S4. No murmurs, rubs or gallops. ABDOMEN: Soft, nontender, mildly distended, normoactive bowel sounds. No guarding, no rebound. NEUROLOGICAL: Pt oriented x 3. - Labs CBC & Chem 7: 07/30/16 03:38 07/29/16 05:58 Labs: Abnormal Lab Results - Last 24 Hours (Table) 07/29/16 07/29/16 07/29/16 Range/Units 10:45 11:57 16:09 WBC (3.8-10.6) k/uL RBC (4.30-5.90) m/uL Hgb (13.0-17.5) gm/dL Hct (39.0-53.0) % Neutrophils # (1.3-7.7) k/uL Lymphocytes # (1.0-4.8) k/uL APTT (22.0-30.0) sec POC Glucose (mg/dL) 125 H (75-99) mg/dL Troponin I 1.930 H* 2.170 H* (0.000-0.034) ng/mL 07/29/16 07/29/16 07/29/16 Range/Units 17:00 17:50 20:47 WBC (3.8-10.6) k/uL RBC (4.30-5.90) m/uL Hgb (13.0-17.5) gm/dL Hct (39.0-53.0) % Neutrophils # (1.3-7.7) k/uL Lymphocytes # (1.0-4.8) k/uL APTT 36.5 H (22.0-30.0) sec POC Glucose (mg/dL) 176 H 162 H (75-99) mg/dL Troponin I (0.000-0.034) ng/mL 07/29/16 07/30/16 07/30/16 Range/Units 22:16 03:38 03:38 WBC 16.5 H (3.8-10.6) k/uL RBC 2.82 L (4.30-5.90) m/uL Hgb 8.7 L (13.0-17.5) gm/dL Hct 27.5 L (39.0-53.0) % Neutrophils # 15.3 H (1.3-7.7) k/uL Lymphocytes # 0.5 L (1.0-4.8) k/uL APTT 67.7 H (22.0-30.0) sec POC Glucose (mg/dL) (75-99) mg/dL Troponin I 1.960 H* (0.000-0.034) ng/mL 07/30/16 Range/Units 06:10 WBC (3.8-10.6) k/uL RBC (4.30-5.90) m/uL Hgb (13.0-17.5) gm/dL Hct (39.0-53.0) % Neutrophils # (1.3-7.7) k/uL Lymphocytes # (1.0-4.8) k/uL APTT (22.0-30.0) sec POC Glucose (mg/dL) 130 H (75-99) mg/dL Troponin I (0.000-0.034) ng/mL Assessment and Plan Plan: Impression: 1. Hemoccult positive stool. 2. Right inguinal hernia. Plan: Patient will be considered for EGD and right inguinal hernia repair when medically stable. Patient will follow-up with Dr. Bourne in 2 weeks after discharge. The above impression and plan have been discussed and directed by Dr. Bourne. Nasima MUNOZ acting as scribe for Dr. Bourne.
[2016-07-30 11:44] LABS: Glucose,Whole Blood 161 mg/dL (75-99)
[2016-07-30] MEDS: IPRATROPIUM-ALBUTEROL 3 ML NEB INHALATION PRN (14:20)
[2016-07-30 14:39] VITALS: BMI 18.1
--- NOTE | 2016-07-30 14:51 | P.PN ---
Subjective Principal diagnosis: Syncope This is an 81-year-old gentleman with history of hyperlipidemia, hypertension, who presented to the hospital following a syncopal episode. Troponin levels 0.5, 0.3, 0.2. Creatinine on admission 2.3. Hemoglobin on admission 12.6, 8.5 this morning. White blood cell count on admission 14.6. 8.7 this morning. Blood pressure 107/60. Heart rate in the 80s. Orthostatics negative. Echocardiogram with Doppler study was performed which revealed mildly enlarged right atrium with severely enlarged right ventricle. Mild pulmonary hypertension. Ejection fraction 55-60%. CT of the brain did not reveal any acute intracranial abnormality. D-dimer which was ordered which came back at 2.4, VQ scan of the chest was performed which revealed intermediate probability for pulmonary embolism. CTA of the chest ruled out PE. Patient is currently on IV heparin. We will discontinue this and start the patient on subcu heparin. Patient denies any further episodes of chest discomfort or difficulty in breathing. Objective - Vital Signs Vital signs: Vital Signs Temp 98.4 F 07/30/16 08:30 Pulse 76 07/30/16 14:31 Resp 22 07/30/16 08:30 BP 107/61 07/30/16 08:30 Pulse Ox 93 L 07/30/16 09:07 Intake & Output 07/29/16 07/30/16 07/30/16 18:59 06:59 18:59 Intake Total 389.060 755.228 Output Total 200 700 Balance 189.060 755.228 -700 Weight 60 kg 59 kg 59 kg Intake: IV 175 Sodium Chloride 0.9% 1, 175 000 ml @ 75 mls/hr IV . [id number] [facility] Rx#:[id number] Intake, IV Titration 149.060 340.228 Amount Heparin Sodium,Porcine/ 149.060 340.228 D5w Pmx 25,000 unit In Dextrose/Water 1 500ml. bag @ 12 UNITS/KG/HR 13. 92 mls/hr IV .Q24H [facility] Rx #:[id number] Oral 240 240 Output: Urine 200 700 Other: Voiding Method Toilet Urinal # Voids 1 # Bowel Movements 0 - Exam PHYSICAL EXAMINATION: HEENT: Head is atraumatic, normocephalic. Pupils equal, round. Neck is supple. There is no elevated jugular venous pressure. HEART EXAMINATION: S1 and S2 1 systolic murmur is heard. CHEST EXAMINATION: Lungs are clear to auscultation and precussion. No chest wall tenderness is noted on palpation or with deep breathing. ABDOMEN: Soft, nontender. Bowel sounds are heard. No organomegaly noted. EXTREMITIES: 2+ peripheral pulses with no evidence of peripheral edema and no calf tenderness noted. NEUROLOGIC patient is awake, alert and oriented -3. . - Labs CBC & Chem 7: 07/30/16 03:38 07/29/16 05:58 Labs: Abnormal Lab Results - Last 24 Hours (Table) 07/29/16 07/29/16 07/29/16 Range/Units 16:09 17:00 17:50 WBC (3.8-10.6) k/uL RBC (4.30-5.90) m/uL Hgb (13.0-17.5) gm/dL Hct (39.0-53.0) % Neutrophils # (1.3-7.7) k/uL Lymphocytes # (1.0-4.8) k/uL APTT 36.5 H (22.0-30.0) sec POC Glucose (mg/dL) 176 H (75-99) mg/dL Troponin I 2.170 H* (0.000-0.034) ng/mL 07/29/16 07/29/16 07/30/16 Range/Units 20:47 22:16 03:38 WBC 16.5 H (3.8-10.6) k/uL RBC 2.82 L (4.30-5.90) m/uL Hgb 8.7 L (13.0-17.5) gm/dL Hct 27.5 L (39.0-53.0) % Neutrophils # 15.3 H (1.3-7.7) k/uL Lymphocytes # 0.5 L (1.0-4.8) k/uL APTT (22.0-30.0) sec POC Glucose (mg/dL) 162 H (75-99) mg/dL Troponin I 1.960 H* (0.000-0.034) ng/mL 07/30/16 07/30/16 07/30/16 Range/Units 03:38 06:10 11:41 WBC (3.8-10.6) k/uL RBC (4.30-5.90) m/uL Hgb (13.0-17.5) gm/dL Hct (39.0-53.0) % Neutrophils # (1.3-7.7) k/uL Lymphocytes # (1.0-4.8) k/uL APTT 67.7 H (22.0-30.0) sec POC Glucose (mg/dL) 130 H 161 H (75-99) mg/dL Troponin I (0.000-0.034) ng/mL Assessment and Plan (1) Syncope Status: Acute (2) Elevated troponin Status: Acute (3) Anemia Status: Acute (4) ARF (acute renal failure) Status: Acute (5) Weakness Status: Acute (6) Pulmonary embolism Status: Acute Plan: From cardiology's perspective, we'll discontinue the IV heparin and initiate subcu heparin on the patient. Continue other medications. DNP note has been reviewed, I agree with a documented findings and plan of care. Patient was seen and examined.
[2016-07-30 16:40] LABS: Glucose,Whole Blood 163 mg/dL (75-99)
--- NOTE | 2016-07-30 19:38 | PN ---
Mr. Mundo Espinoza, seen, evaluated and examined in selective care unit. Patient is an 81-year-old male who came into hospital with non-STEMI, also had right lower lobe pneumonia and acute on chronic hypoxic respiratory failure and renal failure. The patient clinically has been doing well, has episodes of drop in hemoglobin for which general surgery is following. His respiratory status is stable but still gets short of breath on activity and exertion. Care plan discussed with the son-in-law and brother present at bedside at length and also with daughter. Last set of vitals includes blood pressure of 100/55, respiratory rate 16, pulse 72, temperature 98, saturation 97% on 2 liters oxygen. HEENT EXAMINATION: Otherwise unremarkable. NECK: Supple. LUNGS: Good air entry bilaterally. HEART: Regular rate, rhythm. ABDOMEN: Soft. NEUROLOGICAL EXAMINATION: Otherwise, awake and alert. The laboratory data has been reviewed. Glucose is 163. Current medications reviewed and include: 1. Tylenol as needed. 2. DuoNeb unit dose updraft 4 times a day. 3. Aspirin 81 mg daily. 4. Atenolol is 25 mg daily. 5. Lipitor 80 mg daily. 6. Pulmicort 2 times a day. 7. Plavix 75 mg daily. 8. Heparin 5000 subcu q.12 hourly. 9. Sliding scale insulin. 10. Levaquin 750 mg every other day. 11. Also on Solu-Medrol 40 q.12 hours. 12. Patient also on morphine for pain control. 13. IV fluids at 75 mL/h. Cardiovascular services recommended for conservative management and maximization of medical therapy and no aggressive intervention has been contemplated. IMPRESSION: 1. Acute chronic obstructive pulmonary disease exacerbation and tracheobronchitis. 2. Right lower lobe pneumonia. 3. Extensive degree of bullous lung disease and emphysema. 4. Gastrointestinal bleed with heme occult positive. 5. Right-sided inguinal hernia. 6. Renal failure, resolved. PLAN AND RECOMMENDATION: Continue supportive care. Continue antibiotics and breathing treatments, steroids. Will change IV steroids to oral prednisone in next 24 hours. Will follow clinical course closely.
[2016-07-30 21:12] LABS: Glucose,Whole Blood 152 mg/dL (75-99)
[2016-07-30] MEDS: LEVOFLOXACIN 750 MG TAB PO SCH (21:21)
[2016-07-31] MEDS: IPRATROPIUM-ALBUTEROL 3 ML NEB INHALATION PRN (00:01)
[2016-07-31 06:18] LABS: Glucose,Whole Blood 111 mg/dL (75-99)
[2016-07-31] MEDS: INSULIN LISPRO (humaLOG) 300 UNIT/3 ML VIAL SQ SCH ×4 (06:30→23:29)
[2016-07-31 06:32] LABS: Basophils % (A) 0 %; CH 31.6; CHCM 32.6; Eosinophils % (A) 0 %; HCT 23.1 % (39.0-53.0); HDW 2.76; HGB 7.5 gm/dL (13.0-17.5); Luc # (Auto) 0.11; Luc % (Auto) 1; Lymphocytes # (A) 0.4 k/uL (1.0-4.8); Lymphocytes % (A) 2 %; MCH 31.6 pg (25.0-35.0); MCHC 32.3 g/dL (31.0-37.0); MCV 97.7 fL (80.0-100.0); Macrocytosis Slight; Monocytes # (A) 0.7 k/uL (0-1.0); Monocytes % (A) 4 %; Neutrophils # (A) 17.9 k/uL (1.3-7.7); Neutrophils % (A) 94 %; RBC 2.36 m/uL (4.30-5.90); RDW 15.6 % (11.5-15.5); WBC 19.1 k/uL (3.8-10.6); WBC (Perox) 19.23
[2016-07-31] MEDS: NITROGLYCERIN OINT 1 INCH/GM PACKET TOPICAL SCH ×4 (06:50→23:29)
[2016-07-31 06:54] LABS: ALT 76 U/L (21-72); AST 48 U/L (17-59); Alkaline Phosphatase 46 U/L (38-126); Anion Gap 7 mmol/L; Blood Urea Nitrogen 45 mg/dL (9-20); Calcium 7.8 mg/dL (8.4-10.2); Carbon Dioxide 28 mmol/L (22-30); Chloride 103 mmol/L (98-107); Glucose 93 mg/dL (74-99); Non-African American GFR(MDRD) 58 (>60 ml/min/1.73 sqM); Potassium 4.8 mmol/L (3.5-5.1); Sodium 138 mmol/L (137-145); Total Bilirubin 0.4 mg/dL (0.2-1.3); Total Protein 4.6 g/dL (6.3-8.2)
[2016-07-31] MEDS: BUDESONIDE 0.5 MG/2 ML NEBU INHALATION SCH ×2 (08:05→18:58)
[2016-07-31] MEDS: IPRATROPIUM-ALBUTEROL 3 ML NEB INHALATION SCH ×4 (08:05→18:58)
--- NOTE | 2016-07-31 08:32 | P.PN ---
Subjective Principal diagnosis: Shortness of breath. Significant present 81-year-old white male essentially admitted for syncopal episode. The patient's doing quite well except significant weakness. He would like to go home but I suspect the fact that he has an untoward difficulty and has fallen multiple times at home, rehab should be instituted. Discharge planning will be consulted today. No voiding symptoms are otherwise noted. He has significant hernia on the right. Otherwise, he is quite frustrated about being hospitalized. Decreased communication as noted in he does not wish Dr. the care staff at all. Objective - Vital Signs Vital signs: Vital Signs Temp 98.1 F 07/31/16 04:00 Pulse 78 07/31/16 04:00 Resp 16 07/31/16 04:00 BP 114/66 07/31/16 04:00 Pulse Ox 96 07/31/16 08:06 Intake & Output 07/30/16 07/31/16 07/31/16 18:59 06:59 18:59 Intake Total 1000 Output Total 700 240 Balance 300 -240 Weight 59 kg 113.2 kg Intake: IV 200 Sodium Chloride 0.9% 1, 200 000 ml @ 75 mls/hr IV . [id number] [facility] Rx#:[id number] Oral 800 Output: Urine 700 240 Stool 0 Other: # Voids 0 - Constitutional General appearance: Present: thin - EENT Eyes: Absent: abnormal pupil - Respiratory Respiratory: bilateral: rhonchi - Cardiovascular Heart sounds: normal: S1, S2 - Gastrointestinal General gastrointestinal: Present: soft. Absent: tenderness - Integumentary Integumentary: Present: rash - Labs CBC & Chem 7: 07/31/16 05:31 07/31/16 05:31 Labs: Abnormal Lab Results - Last 24 Hours (Table) 07/30/16 07/30/16 07/30/16 Range/Units 11:41 16:38 21:09 WBC (3.8-10.6) k/uL RBC (4.30-5.90) m/uL Hgb (13.0-17.5) gm/dL Hct (39.0-53.0) % RDW (11.5-15.5) % Neutrophils # (1.3-7.7) k/uL Lymphocytes # (1.0-4.8) k/uL BUN (9-20) mg/dL POC Glucose (mg/dL) 161 H 163 H 152 H (75-99) mg/dL Calcium (8.4-10.2) mg/dL ALT (21-72) U/L Total Protein (6.3-8.2) g/dL Albumin (3.5-5.0) g/dL 07/31/16 07/31/16 07/31/16 Range/Units 05:31 05:31 05:58 WBC 19.1 H (3.8-10.6) k/uL RBC 2.36 L (4.30-5.90) m/uL Hgb 7.5 L (13.0-17.5) gm/dL Hct 23.1 L (39.0-53.0) % RDW 15.6 H (11.5-15.5) % Neutrophils # 17.9 H (1.3-7.7) k/uL Lymphocytes # 0.4 L (1.0-4.8) k/uL BUN 45 H (9-20) mg/dL POC Glucose (mg/dL) 111 H (75-99) mg/dL Calcium 7.8 L (8.4-10.2) mg/dL ALT 76 H (21-72) U/L Total Protein 4.6 L (6.3-8.2) g/dL Albumin 2.3 L (3.5-5.0) g/dL Assessment and Plan (1) Community acquired bacterial pneumonia Status: Acute (2) Fall Status: Acute (3) Weakness Status: Acute (4) Right inguinal hernia Status: Acute Plan: Given his overall COPD and multiple comorbidities, we will anticipate DC/ transferred to ECF in the a.m.
[2016-07-31] MEDS: HEPARIN SODIUM,PORCINE 5,000 UNIT/ML 1 ML VIAL SQ SCH ×2 (08:42→23:28)
[2016-07-31] MEDS: ASPIRIN 81 MG CHEW PO SCH (08:42)
[2016-07-31] MEDS: ATENOLOL 25 MG TAB PO SCH (08:42)
[2016-07-31] MEDS: ATORVASTATIN 80 MG TAB PO SCH (08:42)
[2016-07-31] MEDS: CLOPIDOGREL 75 MG TAB PO SCH (08:42)
[2016-07-31] MEDS: predniSONE 20 MG TAB PO SCH (08:47)
--- NOTE | 2016-07-31 11:03 | PN ---
Mundo Espinoza is an 81-year-old male, seen, evaluated, and examined. This patient has been admitted to hospital with non-ST segment elevated IA. Patient has been on maximum medical therapy. He also has a right lower lobe pneumonia, severe COPD, emphysema and extensive bullous lung disease. Patient is being treated steroids, breathing treatments. Clinically, patient is doing much better. His hemodynamic status is stable. He has been recommended for endoscopy, a hernia repair on outpatient basis. His last set of vitals include blood pressure is 114/63, respiratory rate 16, pulse 78, temperature 98, sating 96% on room air. HEENT EXAMINATION: Otherwise unremarkable. Atraumatic, normocephalic and some bruising on the face has improved significantly. NECK: Supple without lymphadenopathy, jugular venous distention or carotid bruit. LUNGS: Bilateral good air entry is present without significant rales, rhonchi, or rub. HEART: Regular rate and rhythm. S1 and S2 audible. ABDOMEN: Soft. No rebound or rigidity. EXTREMITIES: +1 peripheral pulses. NEUROLOGICAL EXAMINATION: Otherwise, awake and alert. IMPRESSION: 1. Acute chronic obstructive pulmonary disease exacerbation. 2. Tracheobronchitis. 3. Right lower lobe pneumonia. 4. 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 5. Non-ST segment elevated myocardial infarction. 6. Gastrointestinal bleed with heme positive stool along with right inguinal hernia, to be evaluated further in outpatient setting. 7. Other issues include acute renal failure, likely related to multifactorial process. Responded well with conservative management. Renal functions are back to baseline. Plan is to continue Levaquin for another few days. Will DC the Solu-Medrol, change it to prednisone and taper and DC prednisone in next few days. Further recommendations pending. In case the patient discharged, recommend followup in outpatient setting.
[2016-07-31 11:30] LABS: Glucose,Whole Blood 92 mg/dL (75-99)
--- NOTE | 2016-07-31 11:35 | P.PN ---
Subjective Principal diagnosis: Syncope This is an 81-year-old gentleman with history of hyperlipidemia, hypertension, who presented to the hospital following a syncopal episode. Blood pressure 100/60. Heart rate in the 70s. Orthostatics negative. Echocardiogram with Doppler study was performed which revealed mildly enlarged right atrium with severely enlarged right ventricle. Mild pulmonary hypertension. Ejection fraction 55-60%. CT of the brain did not reveal any acute intracranial abnormality. Patient was seen and examined this morning, sitting up in the chair, daughter at bedside. Breathing is stable, feels well overall. Objective - Vital Signs Vital signs: Vital Signs Temp 97.2 F L 07/31/16 08:00 Pulse 77 07/31/16 08:00 Resp 18 07/31/16 08:00 BP 100/66 07/31/16 08:00 Pulse Ox 96 07/31/16 08:06 Intake & Output 07/30/16 07/31/16 07/31/16 18:59 06:59 18:59 Intake Total 1000 Output Total 700 240 0 Balance 300 -240 0 Weight 59 kg 113.2 kg Intake: IV 200 Sodium Chloride 0.9% 1, 200 000 ml @ 75 mls/hr IV . [id number] PENDING SALE TO [facility] Rx#:[id number] Oral 800 Output: Urine 700 240 Stool 0 0 Other: Voiding Method Toilet Urinal # Voids 0 - Exam PHYSICAL EXAMINATION: HEENT: Head is atraumatic, normocephalic. Pupils equal, round. Neck is supple. There is no elevated jugular venous pressure. HEART EXAMINATION: S1 and S2 1 systolic murmur is heard. CHEST EXAMINATION: Lungs are clear to auscultation and precussion. No chest wall tenderness is noted on palpation or with deep breathing. ABDOMEN: Soft, nontender. Bowel sounds are heard. No organomegaly noted. EXTREMITIES: 2+ peripheral pulses with no evidence of peripheral edema and no calf tenderness noted. NEUROLOGIC patient is awake, alert and oriented -3. . - Labs CBC & Chem 7: 07/31/16 05:31 07/31/16 05:31 Labs: Abnormal Lab Results - Last 24 Hours (Table) 07/30/16 07/30/16 07/30/16 Range/Units 11:41 16:38 21:09 WBC (3.8-10.6) k/uL RBC (4.30-5.90) m/uL Hgb (13.0-17.5) gm/dL Hct (39.0-53.0) % RDW (11.5-15.5) % Neutrophils # (1.3-7.7) k/uL Lymphocytes # (1.0-4.8) k/uL BUN (9-20) mg/dL POC Glucose (mg/dL) 161 H 163 H 152 H (75-99) mg/dL Calcium (8.4-10.2) mg/dL ALT (21-72) U/L Total Protein (6.3-8.2) g/dL Albumin (3.5-5.0) g/dL 07/31/16 07/31/16 07/31/16 Range/Units 05:31 05:31 05:58 WBC 19.1 H (3.8-10.6) k/uL RBC 2.36 L (4.30-5.90) m/uL Hgb 7.5 L (13.0-17.5) gm/dL Hct 23.1 L (39.0-53.0) % RDW 15.6 H (11.5-15.5) % Neutrophils # 17.9 H (1.3-7.7) k/uL Lymphocytes # 0.4 L (1.0-4.8) k/uL BUN 45 H (9-20) mg/dL POC Glucose (mg/dL) 111 H (75-99) mg/dL Calcium 7.8 L (8.4-10.2) mg/dL ALT 76 H (21-72) U/L Total Protein 4.6 L (6.3-8.2) g/dL Albumin 2.3 L (3.5-5.0) g/dL Assessment and Plan (1) Syncope Status: Acute (2) Elevated troponin Status: Acute (3) Anemia Status: Acute (4) ARF (acute renal failure) Status: Acute (5) Weakness Status: Acute (6) Pulmonary embolism Status: Acute Plan: From cardiology's perspective, patient may be able to be transferred to rehab once cleared by primary. We will make him a follow-up appointment in the office post discharge. DNP note has been reviewed, I agree with a documented findings and plan of care. Patient was seen and examined.
[2016-07-31] MEDS: SODIUM CHLORIDE 0.9% 1,000 ML IV SCH (15:18)
[2016-07-31 16:48] LABS: Glucose,Whole Blood 150 mg/dL (75-99)
[2016-07-31] MEDS ORDERED: LEVOFLOXACIN 750 MG TAB PO SCH (21:00)
[2016-07-31 21:14] LABS: Glucose,Whole Blood 142 mg/dL (75-99)
[2016-08-01 03:38] VITALS: RESP 20
[2016-08-01 03:45] VITALS: TEMP 96.9
[2016-08-01 06:30] LABS: Basophils % (A) 0 %; CH 31.5; CHCM 32.3; Eosinophils % (A) 0 %; HCT 22.6 % (39.0-53.0); HDW 2.78; HGB 7.3 gm/dL (13.0-17.5); Luc # (Auto) 0.11; Luc % (Auto) 1; Lymphocytes # (A) 0.6 k/uL (1.0-4.8); Lymphocytes % (A) 4 %; MCH 31.8 pg (25.0-35.0); MCHC 32.3 g/dL (31.0-37.0); MCV 98.3 fL (80.0-100.0); Macrocytosis Slight; Mean Platelet Volume 6.8; Monocytes # (A) 0.5 k/uL (0-1.0); Monocytes % (A) 3 %; Neutrophils # (A) 14.4 k/uL (1.3-7.7); Neutrophils % (A) 92 %; RDW 15.7 % (11.5-15.5); WBC 15.7 k/uL (3.8-10.6); WBC (Perox) 16.49
[2016-08-01 06:32] LABS: Glucose,Whole Blood 56 mg/dL (75-99)
[2016-08-01 06:42] LABS: Glucose,Whole Blood 106 mg/dL (75-99)
[2016-08-01] MEDS: SODIUM CHLORIDE 0.9% 1,000 ML IV SCH (06:42)
[2016-08-01] MEDS: NITROGLYCERIN OINT 1 INCH/GM PACKET TOPICAL SCH (06:43)
--- NOTE | 2016-08-01 07:57 | P.DS ---
Providers Date of admission: 07/22/16 19:19 Attending physician: Gustavo Szymanski Consults: 07/25/16 07:53 Consult Physician Routine Consulting Provider: Donovan Gutierres Consult Reason/Comments: Pneumonia with respiratory distress Do you want consulting provider notified?: Yes 07/26/16 16:29 Consult Physician Routine Consulting Provider: Thom Bourne Consult Reason/Comments: ON HEPARIN DRIP FOR PE/ POSITIVE STOOL FOR OCCULT BLOOD Do you want consulting provider notified?: Yes Primary care physician: Gustavo Szymanski - Discharge Diagnosis(es) (1) Community acquired bacterial pneumonia Current Visit: Yes Status: Acute (2) Fall Current Visit: Yes Status: Acute (3) Weakness Current Visit: Yes Status: Acute (4) Right inguinal hernia Current Visit: Yes Status: Acute Hospital Course: This is a discharge summary an 81-year-old white male essentially admitted for exacerbation of COPD and weakness. He is had significant problems with generalized weakness. 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 No evidence of this was found on CTA or lower extremities. The patient was stabilized and placed on Plavix and aspirin. He is significant having problems with weakness and will be transferred to ECF after discussion with family. He is in stable but guarded condition. Multiple consultants including cardiology and pulmonology were noted. Echocardiogram did not show significant indigestion fraction dysfunction. He will be discharged in stable condition to follow-up with me once discharged from ECF. Patient Condition at Discharge: Serious Plan - Discharge Summary Discharge Medication List Chlorthalidone [Hygroten] 50 mg PO QAM 07/22/16 [History] Rosuvastatin Calcium [Crestor] 10 mg PO QAM 07/22/16 [History] Acetaminophen Tab [Tylenol] 650 mg PO Q6HR PRN #0 tab 08/01/16 [Rx] Aspirin 81 mg PO DAILY chew 08/01/16 [Rx] Atenolol [Tenormin] 25 mg PO DAILY tab 08/01/16 [Rx] Atorvastatin [Lipitor] 80 mg PO DAILY tab 08/01/16 [Rx] Clopidogrel [Plavix] 75 mg PO DAILY tab 08/01/16 [Rx] Ipratropium-Albuterol Nebulize [Duoneb 0.5 mg-3 mg/3 ml Soln] 3 ml INHALATION RT -QID ampul.neb 08/01/16 [Rx] Nitroglycerin Sl Tabs [Nitrostat] 0.4 mg SUBLINGUAL Q5M PRN #0 tab 08/01/16 [Rx] Zolpidem [Ambien] 5 mg PO HS PRN #0 tab 08/01/16 [Rx] predniSONE 40 mg PO DAILY #13 tab 08/01/16 [Rx] Follow up Appointment(s)/Referral(s): Donovan Gutierres MD [STAFF PHYSICIAN] - 1 Week Thom Bourne MD [STAFF PHYSICIAN] - 2 Weeks Gustavo Szymanski MD [Primary Care Provider] - 1 Week Discharge Disposition: TRANSFER TO SNF/ECF
[2016-08-01] MEDS: IPRATROPIUM-ALBUTEROL 3 ML NEB INHALATION SCH (08:24)
[2016-08-01] MEDS: BUDESONIDE 0.5 MG/2 ML NEBU INHALATION SCH (08:24)
[2016-08-01] MEDS: INSULIN LISPRO (humaLOG) 300 UNIT/3 ML VIAL SQ SCH (09:32)
[2016-08-01] MEDS: ATENOLOL 25 MG TAB PO SCH (09:34)
[2016-08-01] MEDS: predniSONE 20 MG TAB PO SCH (09:34)
[2016-08-01] MEDS: ATORVASTATIN 80 MG TAB PO SCH (09:34)
[2016-08-01] MEDS: CLOPIDOGREL 75 MG TAB PO SCH (09:34)
[2016-08-01] MEDS: ASPIRIN 81 MG CHEW PO SCH (09:34)
[2016-08-01] MEDS: HEPARIN SODIUM,PORCINE 5,000 UNIT/ML 1 ML VIAL SQ SCH (09:35)
[2016-08-01 10:09] VITALS: BP 103/66; PULSE 74
--- NOTE | 2016-08-01 10:28 | P.PN ---
Subjective Principal diagnosis: Syncope This is an 81-year-old gentleman with history of hyperlipidemia, hypertension, who presented to the hospital following a syncopal episode. Blood pressure 100/60. Heart rate in the 70s. Orthostatics negative. Echocardiogram with Doppler study was performed which revealed mildly enlarged right atrium with severely enlarged right ventricle. Mild pulmonary hypertension. Ejection fraction 55-60%. CT of the brain did not reveal any acute intracranial abnormality. She did rule in for non-Q-wave myocardial infarction, decision was made to maximize medical therapy. Patient was seen and examined this morning, sitting up in the chair, brother at bedside. Breathing is stable, feels well overall. Being transferred to outpatient rehab today. Objective - Vital Signs Vital signs: Vital Signs Temp 96.9 F L 08/01/16 00:00 Pulse 74 08/01/16 08:00 Resp 20 08/01/16 08:00 BP 103/66 08/01/16 08:00 Pulse Ox 100 08/01/16 08:00 Intake & Output 07/31/16 08/01/16 08/01/16 18:59 06:59 18:59 Intake Total 550 Output Total 0 1200 250 Balance 550 -1200 -250 Weight 113.2 kg 60.9 kg Intake: Oral 550 Output: Urine 1200 250 Stool 0 0 Other: Voiding Method Toilet Toilet Urinal Urinal # Voids 0 3 - Exam PHYSICAL EXAMINATION: HEENT: Head is atraumatic, normocephalic. Pupils equal, round. Neck is supple. There is no elevated jugular venous pressure. HEART EXAMINATION: S1 and S2 1 systolic murmur is heard. CHEST EXAMINATION: Lungs are clear to auscultation and precussion. No chest wall tenderness is noted on palpation or with deep breathing. ABDOMEN: Soft, nontender. Bowel sounds are heard. No organomegaly noted. EXTREMITIES: 2+ peripheral pulses with no evidence of peripheral edema and no calf tenderness noted. NEUROLOGIC patient is awake, alert and oriented -3. . - Labs CBC & Chem 7: 08/01/16 05:27 07/31/16 05:31 Labs: Abnormal Lab Results - Last 24 Hours (Table) 07/31/16 07/31/16 08/01/16 Range/Units 16:46 21:08 05:27 WBC 15.7 H (3.8-10.6) k/uL RBC 2.30 L (4.30-5.90) m/uL Hgb 7.3 L (13.0-17.5) gm/dL Hct 22.6 L (39.0-53.0) % RDW 15.7 H (11.5-15.5) % Neutrophils # 14.4 H (1.3-7.7) k/uL Lymphocytes # 0.6 L (1.0-4.8) k/uL POC Glucose (mg/dL) 150 H 142 H (75-99) mg/dL 08/01/16 08/01/16 Range/Units 06:18 06:39 WBC (3.8-10.6) k/uL RBC (4.30-5.90) m/uL Hgb (13.0-17.5) gm/dL Hct (39.0-53.0) % RDW (11.5-15.5) % Neutrophils # (1.3-7.7) k/uL Lymphocytes # (1.0-4.8) k/uL POC Glucose (mg/dL) 56 L 106 H (75-99) mg/dL Assessment and Plan (1) Syncope Status: Acute (2) Elevated troponin Status: Acute (3) Anemia Status: Acute (4) ARF (acute renal failure) Status: Acute (5) Weakness Status: Acute (6) Pulmonary embolism Status: Acute Plan: From cardiology's perspective, patient may be able to be transferred to rehab once cleared by primary. We will make him a follow-up appointment in the office post discharge. DNP note has been reviewed, I agree with a documented findings and plan of care. Patient was seen and examined.
== END 2016-08-01 10:30 | DRG 190 ==
LOC: EC 16:28 → 6SEL 19:19
PROVIDERS: ADMIT Family Medicine; ATTEND Family Medicine
DX: J44.0 Chronic obstructive pulmonary disease with (acute) lower respiratory infection (principal); I21.4 Non-ST elevation (NSTEMI) myocardial infarction; J96.21 Acute and chronic respiratory failure with hypoxia; J15.9 Unspecified bacterial pneumonia; I47.2 Ventricular tachycardia; N17.9 Acute kidney failure, unspecified; D62 Acute posthemorrhagic anemia; I20.0 Unstable angina; K92.2 Gastrointestinal hemorrhage, unspecified; I45.2 Bifascicular block; J44.1 Chronic obstructive pulmonary disease with (acute) exacerbation; I27.2 Other secondary pulmonary hypertension; E86.0 Dehydration; I71.2 Thoracic aortic aneurysm, without rupture; E78.5 Hyperlipidemia, unspecified; E87.6 Hypokalemia; I10 Essential (primary) hypertension; K40.90 Unilateral inguinal hernia, without obstruction or gangrene, not specified as recurrent; T50.2X5A Adverse effect of carbonic-anhydrase inhibitors, benzothiadiazides and other diuretics, initial encounter; S00.83XA Contusion of other part of head, initial encounter; J20.9 Acute bronchitis, unspecified; Z87.891 Personal history of nicotine dependence; Z91.81 History of falling; W19.XXXA Unspecified fall, initial encounter; Y92.9 Unspecified place or not applicable
CPT/HCPCS: 36415; 70450; 71010; 71020; 71275; 78582; 80053; 80061; 81003; 82272; 82550; 82553; 82607; 82728; 83036; 83540; 83550; 83735; 84100; 84132; 84484; 85025; 85027; 85045; 85049; 85379; 85610; 85730; 87086; 87502; 93005; 93306; 93880; 93970; 94640; 94760; 96361; 96365; 96366; 96367; 96376; 99291